=== PATIENT | male | born 1960 | race African-American/Black ===

== ENCOUNTER 2016-10-11 17:26 | Inpatient (IN) | payer MEDICAID, OTHER ==
[~2016-10-11] VITALS: Ht 167.6 cm; Wt 60.9 kg
[2016-10-11 18:03] LABS: GLUCOSE,POINT OF CARE 129 MG/DL (70-110)
[2016-10-11 18:14] LABS: BASOPHILS # (AUTO) 0.04 K/uL (0.00-0.20); EOSINOPHILS # (AUTO) 0.07 K/uL (0.00-0.70); EOSINOPHILS % (AUTO) 1.71 % (1.0-6.0); HEMATOCRIT 40.1 % (41-53); HEMOGLOBIN 13.6 g/dL (13.5-17.5); LYMPHOCYTES # (AUTO) 1.8 K/uL (1.0-4.8); LYMPHOCYTES % (AUTO) 46.3 % (22.0-44.0); MEAN CORPUSCULAR HGB CONC 33.9 G/dL (31.0-37.0); MEAN CORPUSCULAR VOLUME 100 fL (80-100); MONOCYTES # (AUTO) 0.4 K/uL (0.1-1.0); MONOCYTES % (AUTO) 9.3 % (2.0-9.0); NEUTROPHILS # (AUTO) 1.6 K/uL (1.8-7.7); NEUTROPHILS % (AUTO) 41.6 % (40.0-70.0); PLATELET COUNT (AUTO) 188 K/uL (150-450); RED BLOOD CELL COUNT(AUTO) 3.99 MIL/uL (4.50-5.90); RED CELL DISTRIBUTION WIDTH 14.3 % (11.5-14.5); WHITE BLOOD COUNT (AUTO) 3.9 K/uL (4.5-11.0)
[2016-10-11 18:20] LABS: ANION GAP 7 mmol/L (8-16); CARBON DIOXIDE 30 mmol/L (22-29); CHLORIDE 108 mmol/L (98-107); CREATININE 0.89 mg/dL (0.60-1.30); GLOMERULAR FILTR. RATE CALC > 60 mL/min (>60); POTASSIUM 4.5 mmol/L (3.5-5.1); SODIUM SERUM 145 mmol/L (136-145); UREA NITROGEN, BLOOD 21 mg/dL (7-18)
[2016-10-11 18:25] LABS: ALANINE AMINOTRANSFERASE 36 U/L (12-78); ALBUMIN 3.7 g/dL (3.4-5.0); ASPARTATE AMINOTRANSFERASE 22 U/L (15-37); BILIRUBIN,TOTAL 0.3 mg/dL (0.1-1.0); TOTAL PROTEIN, SERUM 6.8 g/dL (6.4-8.2)
[2016-10-11] MEDS ORDERED: QUEtiapine FUMARATE 100 MG TABLET PO PRN (20:15)
[2016-10-11] MEDS ORDERED: LORazepam 2 MG TABLET PO PRN (20:15)
[2016-10-11] MEDS ORDERED: ZOLPIDEM TARTRATE 10 MG TABLET PO PRN (20:15)
[2016-10-11 20:29] LABS: APPEARANCE,URINE CLEAR (CLEAR); GLUCOSE, URINE (UA) NEGATIVE (NEGATIVE); KETONES,URINE NEGATIVE (NEGATIVE); LEUKOCYTE ESTERASE ,URINE NEGATIVE (NEGATIVE); OCCULT BLOOD,URINE NEGATIVE (NEGATIVE); PH,URINE 5.5 (5.0-8.0); PROTEIN,URINE NEGATIVE (NEGATIVE)
[2016-10-11] MEDS ORDERED: QUEtiapine FUMARATE 100 MG TABLET PO ONE (20:30)
[2016-10-11 20:40] LABS: ADD UA MICROSCOPIC NO
[2016-10-11 22:35] VITALS: BP 106/65
[2016-10-12 00:51] VITALS: BP 119/77
[2016-10-12 08:17] VITALS: BP 104/61
[2016-10-12] MEDS: NICOTINE 21 MG/24 HOUR PATCH TD SCH (08:34)
[2016-10-12] MEDS ORDERED: MAGNESIUM HYDROXIDE SUSPENSION 30 ML UDCUP PO PRN (11:00)
[2016-10-12] MEDS ORDERED: ACETAMINOPHEN 325 MG TABLET PO PRN (11:00)
[2016-10-12] MEDS ORDERED: OLANZapine 5 MG RAPDIS TABLET PO PRN (11:00)
[2016-10-12] MEDS ORDERED: PROMETHAZINE HCL 25 MG TABLET PO PRN ×2 (11:00→15:45)
[2016-10-12] MEDS ORDERED: LOPERAMIDE HCL 2 MG CAPSULE PO PRN (11:00)
[2016-10-12] MEDS ORDERED: TUBERCULIN, PURIFIED PROTEIN DERIVATIVE 5 TU/0.1 ML SYG ID ONE (11:00)
[2016-10-12] MEDS ORDERED: HydrOXYzine PAMOATE 50 MG CAPSULE PO PRN (11:00)
[2016-10-12] MEDS ORDERED: GuaiFENesin/D-METHORPHAN [SUGAR-FREE] 200-20MG/10 ML SYRUP UDCUP PO PRN (11:00)
[2016-10-12] MEDS ORDERED: MAG HYDROX/AL HYDROX/SIMETH ES 30 ML SUSPENSION UDCUP PO PRN (11:00)
[2016-10-12] MEDS ORDERED: CYANOCOBALAMIN 1,000 MCG/ML VIAL IM ONE (15:45)
[2016-10-12] MEDS ORDERED: QUEtiapine FUMARATE 100 MG TABLET PO PRN (15:45)
[2016-10-12] MEDS ORDERED: DIAZEPAM 10 MG TABLET PO PRN (15:45)
[2016-10-12 16:36] VITALS: BP 107/60
[2016-10-12 16:52] VITALS: BP 107/60
[2016-10-12] MEDS: THIAMINE HCL 100 MG TABLET PO SCH (17:27)
[2016-10-12 17:36] VITALS: BP 110/61
[2016-10-12] MEDS: QUEtiapine FUMARATE 100 MG TABLET PO SCH (20:21)
[2016-10-12] MEDS ORDERED: OLANZapine 5 MG RAPDIS TABLET PO SCH (21:00)
[2016-10-12 22:36] VITALS: BP 111/68
[2016-10-13] VITALS (8 sets, daily range): BP systolic 98–126; BP diastolic 58–83
[2016-10-13] MEDS ORDERED: DIAZEPAM 10 MG TABLET PO PRN (07:00)
[2016-10-13] MEDS: FOLIC ACID 1 MG TABLET PO SCH (09:09)
[2016-10-13] MEDS: MULTIVITAMINS WITH MINERALS, THERAPEUTIC TABLET PO SCH (09:09)
[2016-10-13] MEDS: DIAZEPAM 10 MG TABLET PO SCH ×4 (09:10→21:00)
[2016-10-13] MEDS: THIAMINE HCL 100 MG TABLET PO SCH ×2 (09:10→17:32)
[2016-10-13] MEDS: NICOTINE 21 MG/24 HOUR PATCH TD SCH (09:10)
[2016-10-13] MEDS: QUEtiapine FUMARATE 100 MG TABLET PO SCH (21:05)
[2016-10-14 00:32] VITALS: BP 99/61
[2016-10-14 02:17] VITALS: BP 99/61
[2016-10-14 08:05] VITALS: BP 122/77
[2016-10-14 08:06] VITALS: BP 122/77
[2016-10-14] MEDS: NICOTINE 21 MG/24 HOUR PATCH TD SCH (08:46)
[2016-10-14] MEDS: FOLIC ACID 1 MG TABLET PO SCH (08:46)
[2016-10-14] MEDS: MULTIVITAMINS WITH MINERALS, THERAPEUTIC TABLET PO SCH (08:46)
[2016-10-14] MEDS: THIAMINE HCL 100 MG TABLET PO SCH ×2 (08:46→16:21)
[2016-10-14] MEDS: DIAZEPAM 10 MG TABLET PO SCH ×4 (08:46→20:23)
[2016-10-14] MEDS ORDERED: QUET100T33 PO (11:46)
[2016-10-14] MEDS ORDERED: NALT50 PO (11:46)
[2016-10-14] MEDS ORDERED: HYDROCORTISONE 2.5% 30 GM OINTMENT TP PRN (15:30)
[2016-10-14 16:00] VITALS: BP 119/75
[2016-10-14 16:35] VITALS: BP 119/75
[2016-10-14] MEDS: QUEtiapine FUMARATE 200 MG TABLET PO SCH (20:23)
[2016-10-15] VITALS: BP 108/69
[2016-10-15 05:00] VITALS: BP 124/71
[2016-10-15] MEDS ORDERED: DIAZEPAM 5 MG TABLET PO PRN (07:00)
[2016-10-15 08:00] VITALS: BP 102/71
[2016-10-15 08:06] VITALS: BP 102/61
[2016-10-15 08:38] LABS: CHOL/HDL RATIO 3.3 (4.2-7.3); MAGNESIUM 1.6 mg/dL (1.80-2.40)
[2016-10-15] MEDS: MULTIVITAMINS WITH MINERALS, THERAPEUTIC TABLET PO SCH (08:51)
[2016-10-15] MEDS: DIAZEPAM 5 MG TABLET PO SCH ×4 (08:51→20:37)
[2016-10-15] MEDS: NICOTINE 21 MG/24 HOUR PATCH TD SCH (08:52)
[2016-10-15] MEDS: NALTREXONE HCL 50 MG TABLET PO SCH (08:52)
[2016-10-15] MEDS: THIAMINE HCL 100 MG TABLET PO SCH ×2 (08:52→16:40)
[2016-10-15] MEDS: FOLIC ACID 1 MG TABLET PO SCH (08:52)
[2016-10-15 16:00] VITALS: BP 106/60
[2016-10-15 16:23] VITALS: BP 106/60
[2016-10-15] MEDS: QUEtiapine FUMARATE 200 MG TABLET PO SCH (20:37)
[2016-10-16 01:37] VITALS: BP 110/62
[2016-10-16 01:38] VITALS: BP 110/62
[2016-10-16] MEDS ORDERED: DIAZEPAM 5 MG TABLET PO PRN (07:00)
[2016-10-16] MEDS: MULTIVITAMINS WITH MINERALS, THERAPEUTIC TABLET PO SCH (08:23)
[2016-10-16] MEDS: THIAMINE HCL 100 MG TABLET PO SCH ×2 (08:23→16:19)
[2016-10-16] MEDS: NALTREXONE HCL 50 MG TABLET PO SCH (08:23)
[2016-10-16] MEDS: NICOTINE 21 MG/24 HOUR PATCH TD SCH (08:23)
[2016-10-16] MEDS: FOLIC ACID 1 MG TABLET PO SCH (08:23)
[2016-10-16 09:05] VITALS: BP 110/70
[2016-10-16 09:14] LABS: HEPATITIS Bs ANTIGEN SCREEN P Negative (Negative); HEPATITIS C AB SCREEN <0.1 s/co ratio (0.0-0.9)
[2016-10-16 09:53] VITALS: BP 110/70
[2016-10-16 14:37] VITALS: BP 126/70
[2016-10-16 16:00] VITALS: BP 110/61
[2016-10-16] MEDS: QUEtiapine FUMARATE 200 MG TABLET PO SCH (20:32)
[2016-10-17 06:51] VITALS: BP 102/66
[2016-10-17 06:52] VITALS: BP 102/64
[2016-10-17 08:33] VITALS: BP 101/62
[2016-10-17] MEDS: NALTREXONE HCL 50 MG TABLET PO SCH (09:08)
[2016-10-17] MEDS: NICOTINE 21 MG/24 HOUR PATCH TD SCH (09:08)
[2016-10-17] MEDS: FOLIC ACID 1 MG TABLET PO SCH (09:08)
[2016-10-17] MEDS: MULTIVITAMINS WITH MINERALS, THERAPEUTIC TABLET PO SCH (09:08)
[2016-10-17] MEDS: THIAMINE HCL 100 MG TABLET PO SCH ×2 (09:08→16:36)
[2016-10-17 16:06] VITALS: BP 106/61
[2016-10-17] MEDS: QUEtiapine FUMARATE 200 MG TABLET PO SCH (20:30)
[2016-10-18 06:31] VITALS: BP 112/71
[2016-10-18 08:57] VITALS: BP 121/73
[2016-10-18] MEDS: THIAMINE HCL 100 MG TABLET PO SCH ×2 (09:08→16:17)
[2016-10-18] MEDS: NALTREXONE HCL 50 MG TABLET PO SCH (09:08)
[2016-10-18] MEDS: FOLIC ACID 1 MG TABLET PO SCH (09:08)
[2016-10-18] MEDS: MULTIVITAMINS WITH MINERALS, THERAPEUTIC TABLET PO SCH (09:08)
[2016-10-18] MEDS: NICOTINE 21 MG/24 HOUR PATCH TD SCH (09:09)
[2016-10-18 16:00] VITALS: BP 119/73
[2016-10-18] MEDS ORDERED: QUEtiapine FUMARATE 300 MG TABLET PO SCH (21:00)
[2016-10-19 00:34] VITALS: BP 110/60
[2016-10-19] MEDS: NALTREXONE HCL 50 MG TABLET PO SCH (08:14)
[2016-10-19] MEDS: FOLIC ACID 1 MG TABLET PO SCH (08:14)
[2016-10-19] MEDS: THIAMINE HCL 100 MG TABLET PO SCH ×2 (08:14→16:02)
[2016-10-19] MEDS: NICOTINE 21 MG/24 HOUR PATCH TD SCH (08:14)
[2016-10-19] MEDS: MULTIVITAMINS WITH MINERALS, THERAPEUTIC TABLET PO SCH (08:14)
[2016-10-19 08:42] VITALS: BP 112/60
[2016-10-19] MEDS ORDERED: QUET300T18 PO (12:24)
[2016-10-19] MEDS ORDERED: QUET400T PO (15:02)
[2016-10-19] MEDS ORDERED: NALT50TA10 PO (15:04)
[2016-10-19 16:00] VITALS: BP 125/79
[2016-10-19] MEDS ORDERED: ROPI1TAB11 PO (17:27)
[2016-10-19] MEDS ORDERED: ROPINIRole HCL 1 MG TABLET PO SCH (21:00)
[2016-10-19] MEDS ORDERED: QUEtiapine FUMARATE 200 MG TABLET PO SCH (21:00)
== END 2016-10-19 19:15 | disposition home or self-care (01) | DRG 750 ==
LOC: EMS 17:38 → B2S 20:15
PROVIDERS: ADMIT Psychiatry & Neurology Psychiatry; ATTEND Psychiatry & Neurology Psychiatry
PROC: GZ51ZZZ Individual Psychotherapy, Behavioral (ICD-10-PCS; principal; 2016-10-11)
DX: F25.9 Schizoaffective disorder, unspecified (principal); R45.851 Suicidal ideations; I11.0 Hypertensive heart disease with heart failure; I50.9 Heart failure, unspecified; K21.9 Gastro-esophageal reflux disease without esophagitis; R45.850 Homicidal ideations; F32.9 Major depressive disorder, single episode, unspecified; D64.9 Anemia, unspecified; F15.90 Other stimulant use, unspecified, uncomplicated; F17.210 Nicotine dependence, cigarettes, uncomplicated; Z91.19 Patient's noncompliance with other medical treatment and regimen; Z71.6 Tobacco abuse counseling; Z90.49 Acquired absence of other specified parts of digestive tract; Z98.890 Other specified postprocedural states; Z87.81 Personal history of (healed) traumatic fracture; Z86.010 Personal history of colon polyps
CPT/HCPCS: 80074; 82962; 83036; 83735; 99285; G0480; J3420

== ENCOUNTER 2016-12-17 19:21 | Emergency (ER) | payer MEDICAID, OTHER ==
[~2016-12-17] VITALS: Ht 167.6 cm; Wt 59.0 kg
[~2016-12-17 19:21] MED LIST: NALT50 PO; NALT50TA10 PO; QUET100T33 PO; QUET300T18 PO; QUET400T PO; ROPI1TAB11 PO
[2016-12-17 19:47] LABS: GLUCOSE,POINT OF CARE 87 MG/DL (70-110)
[2016-12-17 20:18] LABS: BASOPHILS % (AUTO) 1.3 % (0.0-2.0); EOSINOPHILS % (AUTO) 2.3 % (1.0-6.0); HEMATOCRIT 41.5 % (41-53); HEMOGLOBIN 13.8 g/dL (13.5-17.5); LYMPHOCYTES # (AUTO) 1.8 K/uL (1.0-4.8); LYMPHOCYTES % (AUTO) 39.7 % (22.0-44.0); MEAN CORPUSCULAR HEMOGLOBIN 33.7 pg (26.0-34.0); MEAN CORPUSCULAR HGB CONC 33.2 G/dL (31.0-37.0); MEAN CORPUSCULAR VOLUME 102 fL (80-100); MONOCYTES # (AUTO) 0.3 K/uL (0.1-1.0); MONOCYTES % (AUTO) 7.5 % (2.0-9.0); NEUTROPHILS # (AUTO) 2.2 K/uL (1.8-7.7); NEUTROPHILS % (AUTO) 49.2 % (40.0-70.0); PLATELET COUNT (AUTO) 195 K/uL (150-450); RED BLOOD CELL COUNT(AUTO) 4.08 MIL/uL (4.50-5.90); RED CELL DISTRIBUTION WIDTH 14.1 % (11.5-14.5); WHITE BLOOD COUNT (AUTO) 4.5 K/uL (4.5-11.0)
[2016-12-17 20:29] LABS: ANION GAP 11 mmol/L (8-16); CALCIUM, TOTAL 9.2 mg/dL (8.8-10.5); CARBON DIOXIDE 28 mmol/L (22-29); CHLORIDE 103 mmol/L (98-107); CREATININE 0.86 mg/dL (0.60-1.30); GLOMERULAR FILTR. RATE CALC > 60 mL/min (>60); SODIUM SERUM 142 mmol/L (136-145); UREA NITROGEN, BLOOD 17 mg/dL (7-18)
[2016-12-17 20:35] LABS: ALANINE AMINOTRANSFERASE 43 U/L (12-78); ALBUMIN 3.9 g/dL (3.4-5.0); ASPARTATE AMINOTRANSFERASE 32 U/L (15-37); BILIRUBIN,TOTAL 0.4 mg/dL (0.1-1.0); TOTAL PROTEIN, SERUM 7.1 g/dL (6.4-8.2)
[2016-12-17] MEDS ORDERED: QUEtiapine FUMARATE 100 MG TABLET PO ONE (21:00)
[2016-12-17] MEDS ORDERED: QUET100T PO (21:00)
[2016-12-17 21:08] VITALS: BP 128/81
[2016-12-17 22:26] LABS: RBC MORPHOLOGY COMMENT ABNORMAL RBC MORPH
== END 2016-12-17 21:09 | disposition home or self-care (01) ==
LOC: EMS 19:23
DX: F32.9 Major depressive disorder, single episode, unspecified (principal); F20.9 Schizophrenia, unspecified; R45.851 Suicidal ideations; E11.9 Type 2 diabetes mellitus without complications; F17.210 Nicotine dependence, cigarettes, uncomplicated
CPT/HCPCS: 36415; 80053; 82962; 85025; 99284; 99406; G0480

== ENCOUNTER 2017-05-05 12:14 | Emergency (ER) | payer OTHER ==
[~2017-05-05] VITALS: Ht 167.6 cm; Wt 59.5 kg
[~2017-05-05 12:14] MED LIST changes: -NALT50 PO; +NALT50TA6 PO; +QUET100T PO; -QUET100T33 PO; -QUET300T18 PO; -QUET400T PO
[2017-05-05 12:19] VITALS: BP 150/97
== END 2017-05-05 13:50 | disposition left against medical advice (07) ==
LOC: EMS 12:15
DX: Z53.21 Procedure and treatment not carried out due to patient leaving prior to being seen by health care provider (principal)

== ENCOUNTER 2017-11-27 07:13 | Emergency (ER) | payer OTHER ==
[~2017-11-27] VITALS: Ht 175.3 cm; Wt 68.2 kg
[~2017-11-27 07:13] MED LIST changes: -NALT50TA6 PO
[2017-11-27 07:19] VITALS: BP 120/87
[2017-11-27 07:33] LABS: GLUCOSE,POINT OF CARE 93 MG/DL (70-110)
[2017-11-27 07:49] LABS: APPEARANCE,URINE CLEAR (CLEAR)
[2017-11-27 07:50] LABS: BILIRUBIN,URINE NEGATIVE (NEGATIVE); GLUCOSE, URINE (UA) NEGATIVE (NEGATIVE); KETONES,URINE TRACE mg/dL (NEGATIVE); LEUKOCYTE ESTERASE ,URINE NEGATIVE (NEGATIVE); NITRATE,URINE NEGATIVE (NEGATIVE); OCCULT BLOOD,URINE NEGATIVE (NEGATIVE); PH,URINE 6.5 (5.0-8.0); PROTEIN,URINE POS 1+ (NEGATIVE)
[2017-11-27] MEDS ORDERED: AZITHROMYCIN 250 MG TABLET PO ONE (08:45)
[2017-11-27] MEDS ORDERED: LIDOCAINE HCL/PF 1% 2 ML VIAL IM ONE (08:45)
[2017-11-27] MEDS ORDERED: CefTRIAXone SODIUM 1 GM/VIAL IM ONE (08:45)
== END 2017-11-27 08:52 | disposition home or self-care (01) ==
LOC: EMS 07:15
DX: R36.9 Urethral discharge, unspecified (principal); E11.9 Type 2 diabetes mellitus without complications; F15.90 Other stimulant use, unspecified, uncomplicated; F17.210 Nicotine dependence, cigarettes, uncomplicated
CPT/HCPCS: 81003; 82962; 96372; 99283; J0696; J3490

== ENCOUNTER 2018-07-06 12:47 | Emergency (ER) | payer OTHER ==
[~2018-07-06] VITALS: Ht 167.6 cm; Wt 59.5 kg
[2018-07-06 13:14] LABS: GLUCOSE,POINT OF CARE 84 MG/DL (70-110)
[2018-07-06 13:23] VITALS: BP 116/79
[2018-07-06] MEDS ORDERED: PERTUSS(ACELL),DIPH,TET VAC/PF 0.5 ML VIAL IM ONE (13:45)
== END 2018-07-06 14:36 | disposition home or self-care (01) ==
LOC: EMS 12:48
DX: S91.332A Puncture wound without foreign body, left foot, initial encounter (principal); E11.9 Type 2 diabetes mellitus without complications; F32.9 Major depressive disorder, single episode, unspecified; F20.9 Schizophrenia, unspecified; F17.210 Nicotine dependence, cigarettes, uncomplicated; F15.90 Other stimulant use, unspecified, uncomplicated; Z79.899 Other long term (current) drug therapy; W45.0XXA Nail entering through skin, initial encounter; Y93.01 Activity, walking, marching and hiking; Y92.89 Other specified places as the place of occurrence of the external cause; Y99.8 Other external cause status
CPT/HCPCS: 90471; 90715

== ENCOUNTER 2018-10-08 20:55 | Emergency (ER) | payer OTHER ==
[~2018-10-08] VITALS: Ht 167.6 cm; Wt 59.1 kg
[2018-10-08 21:49] LABS: GLUCOSE,POINT OF CARE 75 MG/DL (70-110)
[2018-10-08 23:19] VITALS: BP 141/88
== END 2018-10-08 23:25 | disposition home or self-care (01) ==
LOC: EMS 20:56
DX: H10.9 Unspecified conjunctivitis (principal); F32.9 Major depressive disorder, single episode, unspecified; F10.20 Alcohol dependence, uncomplicated; F20.9 Schizophrenia, unspecified; F17.210 Nicotine dependence, cigarettes, uncomplicated; F15.90 Other stimulant use, unspecified, uncomplicated; Z79.899 Other long term (current) drug therapy

== ENCOUNTER 2019-05-14 13:24 | Emergency (ER) | payer OTHER ==
[~2019-05-14] VITALS: Ht 167.6 cm; Wt 61.4 kg
[2019-05-14 16:23] LABS: BASOPHILS % (AUTO) 0.5 % (0.0-2.0); EOSINOPHILS % (AUTO) 1.4 % (1.0-6.0); HEMATOCRIT 39.6 % (41-53); HEMOGLOBIN 13.3 g/dL (13.5-17.5); LYMPHOCYTES % (AUTO) 16.9 % (22.0-44.0); MEAN CORPUSCULAR HEMOGLOBIN 34.2 pg (26.0-34.0); MEAN CORPUSCULAR HGB CONC 33.6 G/dL (31.0-37.0); MEAN CORPUSCULAR VOLUME 102 fL (80-100); MONOCYTES # (AUTO) 0.9 K/uL (0.1-1.0); MONOCYTES % (AUTO) 14.8 % (2.0-9.0); NEUTROPHILS % (AUTO) 66.4 % (40.0-70.0); PLATELET COUNT (AUTO) 257 K/uL (150-450); RED BLOOD CELL COUNT(AUTO) 3.89 MIL/uL (4.50-5.90); RED CELL DISTRIBUTION WIDTH 13.7 % (11.5-14.5)
[2019-05-14 16:35] LABS: ANION GAP 7 mmol/L (8-16); CALCIUM, TOTAL 9.2 mg/dL (8.8-10.5); CARBON DIOXIDE 30 mmol/L (22-29); CHLORIDE 98 mmol/L (98-107); CREATININE 0.99 mg/dL (0.60-1.30); GLOMERULAR FILTR. RATE CALC > 60 mL/min (>60); GLUCOSE,RANDOM 140 mg/dL (70-110); POTASSIUM 3.7 mmol/L (3.5-5.1); SODIUM SERUM 135 mmol/L (136-145); UREA NITROGEN, BLOOD 20 mg/dL (7-18)
[2019-05-14 16:41] LABS: ALANINE AMINOTRANSFERASE 21 U/L (12-78); ALBUMIN 3.7 g/dL (3.4-5.0); ALKALINE PHOSPHATASE 90 U/L (46-116); ASPARTATE AMINOTRANSFERASE 20 U/L (15-37); BILIRUBIN,TOTAL 0.5 mg/dL (0.1-1.0); TOTAL PROTEIN, SERUM 7.5 g/dL (6.4-8.2)
[2019-05-14 16:42] LABS: LACTIC ACID 0.8 mmol/L (0.4-2.0)
[2019-05-14] MEDS ORDERED: LIDOCAINE 1% 10 ML VIAL INJ ONE (17:30)
[2019-05-14] MEDS ORDERED: LIDOCAINE/PF 1% 2 ML VIAL IM ONE (17:30)
[2019-05-14] MEDS ORDERED: POVIDONE-IODINE 10% 15 ML SOLUTION UD TP ONE (17:30)
[2019-05-14] MEDS ORDERED: CefTRIAXone SODIUM 1 GM/VIAL IM ONE (17:30)
[2019-05-14 18:49] VITALS: BP 115/70
== END 2019-05-14 19:04 | disposition home or self-care (01) ==
LOC: EMS 13:25
DX: L03.011 Cellulitis of right finger (principal); E11.9 Type 2 diabetes mellitus without complications; F10.20 Alcohol dependence, uncomplicated; F32.9 Major depressive disorder, single episode, unspecified; F20.9 Schizophrenia, unspecified; F17.210 Nicotine dependence, cigarettes, uncomplicated; F15.90 Other stimulant use, unspecified, uncomplicated; Z79.899 Other long term (current) drug therapy; Z98.890 Other specified postprocedural states
CPT/HCPCS: 10060; 36415; 73130; 80053; 83605; 85025; 96372; 99284; J0696; J3490 ×2

== ENCOUNTER 2019-08-06 12:39 | Emergency (ER) | payer OTHER ==
[~2019-08-06] VITALS: Ht 167.6 cm; Wt 61.4 kg
[~2019-08-06 12:39] MED LIST changes: -ROPI1TAB11 PO; +ROPI1TAB13 PO
[2019-08-06] MEDS ORDERED: ACETAMINOPHEN 500 MG TABLET PO ONE (13:45)
[2019-08-06] MEDS ORDERED: PERTUSS(ACELL),DIPH,TET VAC/PF 0.5 ML VIAL IM ONE (13:45)
[2019-08-06 14:17] LABS: GLUCOSE,POINT OF CARE 97 MG/DL (70-110)
[2019-08-06] MEDS ORDERED: CEPHALEXIN MONOHYDRATE 500 MG CAPSULE PO ONE (14:45)
[2019-08-06 14:56] VITALS: BP 113/61
== END 2019-08-06 15:09 | disposition home or self-care (01) ==
LOC: EMS 12:42
DX: S91.321A Laceration with foreign body, right foot, initial encounter (principal); E11.9 Type 2 diabetes mellitus without complications; F10.20 Alcohol dependence, uncomplicated; F32.9 Major depressive disorder, single episode, unspecified; F20.9 Schizophrenia, unspecified; F17.210 Nicotine dependence, cigarettes, uncomplicated; F15.90 Other stimulant use, unspecified, uncomplicated; Z79.899 Other long term (current) drug therapy; Z98.890 Other specified postprocedural states; W22.8XXA Striking against or struck by other objects, initial encounter; Y93.89 Activity, other specified; Y92.89 Other specified places as the place of occurrence of the external cause; Y99.8 Other external cause status
CPT/HCPCS: 82948; 90471; 90715; 99406

== ENCOUNTER 2019-09-17 14:46 | Emergency (ER) | payer OTHER ==
[~2019-09-17] VITALS: Ht 167.6 cm; Wt 60.0 kg
[2019-09-17 17:21] VITALS: BP 122/64
== END 2019-09-17 17:22 | disposition home or self-care (01) ==
LOC: EMS 14:48
DX: S90.851A Superficial foreign body, right foot, initial encounter (principal); E11.9 Type 2 diabetes mellitus without complications; F20.9 Schizophrenia, unspecified; F32.9 Major depressive disorder, single episode, unspecified; F17.210 Nicotine dependence, cigarettes, uncomplicated; W22.8XXA Striking against or struck by other objects, initial encounter; Y93.89 Activity, other specified; Y92.89 Other specified places as the place of occurrence of the external cause; Y99.8 Other external cause status
CPT/HCPCS: 99406

== ENCOUNTER 2020-06-02 19:01 | Emergency (ER) | payer OTHER ==
[~2020-06-02] VITALS: Ht 167.6 cm; Wt 60.0 kg
[2020-06-02 19:51] LABS: APPEARANCE,URINE CLEAR (CLEAR); BILIRUBIN,URINE NEGATIVE (NEGATIVE); GLUCOSE, URINE (UA) NEGATIVE (NEGATIVE); KETONES,URINE NEGATIVE (NEGATIVE); LEUKOCYTE ESTERASE ,URINE NEGATIVE (NEGATIVE); NITRATE,URINE NEGATIVE (NEGATIVE); OCCULT BLOOD,URINE NEGATIVE (NEGATIVE); PH,URINE 6.5 (5.0-8.0); PROTEIN,URINE NEGATIVE (NEGATIVE)
[2020-06-02] MEDS ORDERED: TAMSULOSIN HCL 0.4 MG CAPSULE PO ONE (21:00)
[2020-06-02 21:50] VITALS: BP 118/72
== END 2020-06-02 22:52 | disposition home or self-care (01) ==
LOC: EMS 19:01
DX: R39.12 Poor urinary stream (principal); F32.9 Major depressive disorder, single episode, unspecified; F20.9 Schizophrenia, unspecified; E11.9 Type 2 diabetes mellitus without complications; F17.210 Nicotine dependence, cigarettes, uncomplicated; F15.90 Other stimulant use, unspecified, uncomplicated

== ENCOUNTER 2021-05-14 20:59 | Inpatient (IN) | payer OTHER ==
[~2021-05-14] VITALS: Ht 167.6 cm; Wt 64.5 kg
[2021-05-14] MEDS ORDERED: APIX5TAB PO (21:10)
[2021-05-14] MEDS ORDERED: QUET200T PO (21:10)
[2021-05-14] MEDS ORDERED: ACETAMINOPHEN 500 MG TABLET PO ONE (22:45)
[2021-05-14] MEDS ORDERED: SODIUM CHLORIDE 0.9% 1,800 ML IV ONE (22:45)
[2021-05-14] MEDS ORDERED: CefTRIAXone 1 GM/DEXTROSE 50 ML IV ONE (22:45)
[2021-05-14] MEDS ORDERED: 0.9% SODIUM CHLORIDE 10 ML SYRINGE IVP PRN (22:45)
[2021-05-14 23:15] LABS: COVID AG,FIA SOURCE NASOPHARYNGEAL
[2021-05-14 23:19] LABS: BASOPHILS % (AUTO) 0.8 % (0.0-2.0); EOSINOPHILS % (AUTO) 0.3 % (1.0-6.0); HEMATOCRIT 30.1 % (41-53); HEMOGLOBIN 9.9 g/dL (13.5-17.5); LYMPHOCYTES # (AUTO) 1.6 K/uL (1.0-4.8); LYMPHOCYTES % (AUTO) 8.2 % (22.0-44.0); MEAN CORPUSCULAR HEMOGLOBIN 32.9 pg (26.0-34.0); MEAN CORPUSCULAR HGB CONC 33.1 G/dL (31.0-37.0); MEAN CORPUSCULAR VOLUME 99 fL (80-100); MONOCYTES # (AUTO) 1.2 K/uL (0.1-1.0); MONOCYTES % (AUTO) 6.1 % (2.0-9.0); NEUTROPHILS # (AUTO) 16.7 K/uL (1.8-7.7); NEUTROPHILS % (AUTO) 84.6 % (40.0-70.0); PLATELET COUNT (AUTO) 657 K/uL (150-450); RED BLOOD CELL COUNT(AUTO) 3.03 MIL/uL (4.50-5.90); RED CELL DISTRIBUTION WIDTH 14.9 % (11.5-14.5)
[2021-05-14 23:33] LABS: INR 1.3 (0.9-1.1); PROTHROMBIN TIME 13.4 SEC (9.4-11.6)
[2021-05-14 23:34] LABS: SODIUM SERUM 137 mmol/L (136-145)
[2021-05-14 23:35] LABS: ANION GAP 10 mmol/L (8-16); CALCIUM, TOTAL 9.3 mg/dL (8.8-10.5); CARBON DIOXIDE 29 mmol/L (22-29); CHLORIDE 98 mmol/L (98-107); CREATININE 0.83 mg/dL (0.60-1.30); GLOMERULAR FILTR. RATE CALC > 60 mL/min (>60); GLUCOSE,RANDOM 125 mg/dL (70-110); POTASSIUM 4.3 mmol/L (3.5-5.1); UREA NITROGEN, BLOOD 13 mg/dL (7-18)
[2021-05-14 23:42] LABS: INFLUENZA TYPE A NEGATIVE FOR TYPE A (NEGATIVE); INFLUENZA TYPE B NEGATIVE FOR TYPE B (NEGATIVE); LACTIC ACID 1.7 mmol/L (0.4-2.0)
[2021-05-14 23:44] LABS: ALANINE AMINOTRANSFERASE 62 U/L (12-78); ALBUMIN 2.1 g/dL (3.4-5.0); ALKALINE PHOSPHATASE 108 U/L (46-116); ASPARTATE AMINOTRANSFERASE 36 U/L (15-37); BILIRUBIN,TOTAL 0.3 mg/dL (0.1-1.0); CREATINE KINASE, TOTAL ONLY 96 U/L (39-308); TOTAL PROTEIN, SERUM 8.2 g/dL (6.4-8.2)
[2021-05-14] MEDS ORDERED: AZITHROMYCIN 500 MG/NS 250 ML IV ONE (23:45)
[2021-05-14 23:46] LABS: B-TYPE NATRIURETIC PEPTIDE 63 pg/mL (0-100)
[2021-05-14 23:57] LABS: APPEARANCE,URINE CLEAR (CLEAR); BILIRUBIN,URINE NEGATIVE (NEGATIVE); GLUCOSE, URINE (UA) NEGATIVE (NEGATIVE); KETONES,URINE NEGATIVE (NEGATIVE); LEUKOCYTE ESTERASE ,URINE NEGATIVE (NEGATIVE); NITRATE,URINE NEGATIVE (NEGATIVE); OCCULT BLOOD,URINE NEGATIVE (NEGATIVE); PROTEIN,URINE NEGATIVE (NEGATIVE)
[2021-05-15 00:01] LABS: AMPHET/METH SCREEN,URINE NEGATIVE (NEGATIVE); BARBITURATE SCREEN, URINE NEGATIVE (NEGATIVE); BENZODIAZEPINES SCREEN,URINE NEGATIVE (NEGATIVE); CANNABINOID SCREEN,URINE NEGATIVE (NEGATIVE); COCAINE SCREEN,URINE NEGATIVE (NEGATIVE); METHADONE SCREEN, URINE NEGATIVE (NEGATIVE); OPIATE SCREEN,URINE NEGATIVE (NEGATIVE)
[2021-05-15 00:02] LABS: PHENCYCLIDINE SCREEN,URINE NEGATIVE (NEGATIVE)
[2021-05-15] MEDS ORDERED: ACETAMINOPHEN 325 MG TABLET PO PRN (00:30)
[2021-05-15] MEDS ORDERED: ONDANSETRON HCL 4 MG/2 ML VIAL IVP PRN ×2 (00:30→01:15)
[2021-05-15] MEDS ORDERED: ALBUTEROL SULFATE 2.5 MG/0.5 ML NEB SOLUTION NEB PRN (01:15)
[2021-05-15] MEDS ORDERED: IPRATROPIUM BROMIDE 0.5 MG/2.5 ML NEB SOLUTION NEB PRN (01:15)
[2021-05-15] MEDS: SODIUM CHLORIDE 0.9% 1,000 ML IV SCH ×2 (01:31→14:56)
[2021-05-15] MEDS: PIPERACILLIN/TAZO 3.375 GM/D5W 50 ML IV SCH ×3 (08:00→20:37)
[2021-05-15] MEDS ORDERED: HEPARIN SODIUM,PORCINE 5,000 UNITS/ML VIAL SQ SCH (08:00)
[2021-05-15] MEDS ORDERED: VANCOMYCIN HCL 1 GM/D5% WATER 200 ML IV ONE (08:30)
[2021-05-15 09:00] VITALS: BP 103/60
[2021-05-15] MEDS ORDERED: FentaNYL CITRATE PF 100 MCG/2 ML VIAL ONE (09:18)
[2021-05-15] MEDS ORDERED: FLUMAZENIL 0.1 MG/ML 5 ML VIAL IVP ONE (09:18)
[2021-05-15] MEDS ORDERED: NALOXONE HCL 0.4 MG/ML VIAL ONE (09:18)
[2021-05-15] MEDS ORDERED: MIDAZOLAM HCL 2 MG/2 ML VIAL ONE (09:18)
[2021-05-15] MEDS ORDERED: SODIUM CHLORIDE 0.9% 250 ML IV ONE (10:10)
[2021-05-15] MEDS ORDERED: FentaNYL CITRATE PF 100 MCG/2 ML VIAL IVP ONE ×2 (11:20→11:25)
[2021-05-15] MEDS ORDERED: MIDAZOLAM HCL 2 MG/2 ML VIAL IVP ONE (11:20)
[2021-05-15] MEDS: MORPHINE SULFATE 2 MG/ML SYRINGE IVP PRN ×2 (12:47→20:34)
[2021-05-15] MEDS: ACETAMINOPHEN 325 MG TABLET PO PRN (14:02)
[2021-05-15 15:45] VITALS: BP 103/64
[2021-05-15 15:54] LABS: SPECIMENTYPE,BODY FLUID PLEURAL
[2021-05-15 15:55] VITALS: BP 101/65
[2021-05-15] MEDS: VANCOMYCIN HCL 750 MG in DEXTROSE 5%-WATER 250 ML IV SCH (16:55)
[2021-05-15] MEDS ORDERED: DEXTROSE 50%-WATER 25 GM/50 ML SYRINGE IVP PRN (17:00)
[2021-05-15] MEDS: INSULIN LISPRO 100 UNITS/ML SQ PRN (17:33)
[2021-05-15 18:05] LABS: GLUCOMETER DEV NAME(LOC) 5S.2B; GLUCOSE,POINT OF CARE 160 MG/DL (70-110)
[2021-05-15 18:33] LABS: APPEARANCE,SPUN,BODY FLUID CLOUDY (CLEAR); APPEARANCE,UNSPUN,BODY FLUID TURBID (CLEAR); BASOPHILS,BODY FLUID 0 %; COLOR,BODY FLUID YELLOW (LT YELLOW); EOSINOPHILS,BF (ANAL) 0 %; LYMPHOCYTES,BODY FLUID 28 %; MONOCYTES,BODY FLUID 0 %; NEUTROPHILS,BODY FLUID 72 %; TOTAL VOLUME,BODY FLUID 50 mL; WBC, BODY FLUID 28450 /cu. mm.
[2021-05-15 20:32] VITALS: BP 95/59
[2021-05-15] MEDS: QUEtiapine FUMARATE 200 MG TABLET PO SCH (20:37)
[2021-05-15] MEDS: APIXABAN 5 MG TABLET PO SCH (20:37)
[2021-05-15 22:47] LABS: GLUCOMETER DEV NAME(LOC) 5S.1; GLUCOSE,POINT OF CARE 108 MG/DL (70-110)
[2021-05-15] MEDS ORDERED: CefTRIAXone 1 GM/DEXTROSE 50 ML IV SCH (23:00)
[2021-05-16] VITALS (8 sets, daily range): BP systolic 93–110; BP diastolic 55–67
[2021-05-16] MEDS ORDERED: AZITHROMYCIN 500 MG/NS 250 ML IV SCH
[2021-05-16] MEDS: VANCOMYCIN HCL 750 MG in DEXTROSE 5%-WATER 250 ML IV SCH ×4 (00:35→23:56)
[2021-05-16] MEDS: PIPERACILLIN/TAZO 3.375 GM/D5W 50 ML IV SCH ×4 (03:17→21:32)
[2021-05-16] MEDS: SODIUM CHLORIDE 0.9% 1,000 ML IV SCH (03:55)
[2021-05-16] MEDS: INSULIN LISPRO 100 UNITS/ML SQ PRN ×3 (06:18→21:33)
[2021-05-16 06:22] LABS: BASOPHILS % (AUTO) 0.3 % (0.0-2.0); EOSINOPHILS % (AUTO) 1.1 % (1.0-6.0); HEMATOCRIT 28.4 % (41-53); HEMOGLOBIN 9.4 g/dL (13.5-17.5); LYMPHOCYTES % (AUTO) 9.2 % (22.0-44.0); MEAN CORPUSCULAR HGB CONC 33.2 G/dL (31.0-37.0); MEAN CORPUSCULAR VOLUME 99 fL (80-100); MONOCYTES # (AUTO) 0.6 K/uL (0.1-1.0); MONOCYTES % (AUTO) 5.6 % (2.0-9.0); NEUTROPHILS # (AUTO) 9.5 K/uL (1.8-7.7); NEUTROPHILS % (AUTO) 83.8 % (40.0-70.0); PLATELET COUNT (AUTO) 634 K/uL (150-450); RED BLOOD CELL COUNT(AUTO) 2.86 MIL/uL (4.50-5.90); RED CELL DISTRIBUTION WIDTH 15.1 % (11.5-14.5)
[2021-05-16 07:08] LABS: ANION GAP 12 mmol/L (8-16); CALCIUM, TOTAL 8.5 mg/dL (8.8-10.5); CARBON DIOXIDE 27 mmol/L (22-29); CHLORIDE 101 mmol/L (98-107); CREATININE 0.71 mg/dL (0.60-1.30); GLOMERULAR FILTR. RATE CALC > 60 mL/min (>60); GLUCOSE,RANDOM 152 mg/dL (70-110); LACTATE DEHYDROGENASE 151 U/L (85-227); POTASSIUM 3.8 mmol/L (3.5-5.1); SODIUM SERUM 140 mmol/L (136-145); TOTAL PROTEIN, SERUM 6.7 g/dL (6.4-8.2); UREA NITROGEN, BLOOD 8 mg/dL (7-18)
[2021-05-16] MEDS: MULTIVITAMINS WITH MINERALS, THERAPEUTIC TABLET PO SCH (08:24)
[2021-05-16] MEDS: QUEtiapine FUMARATE 100 MG TABLET PO SCH (08:24)
[2021-05-16] MEDS: THIAMINE 100 MG TABLET PO SCH (08:25)
[2021-05-16] MEDS: APIXABAN 5 MG TABLET PO SCH ×2 (08:25→21:32)
[2021-05-16] MEDS: FOLIC ACID 1 MG TABLET PO SCH (08:25)
[2021-05-16] MEDS: ACETAMINOPHEN 325 MG TABLET PO PRN (08:42)
[2021-05-16 11:23] LABS: GLUCOMETER DEV NAME(LOC) 5S.1; GLUCOSE,POINT OF CARE 170 MG/DL (70-110)
[2021-05-16 16:12] LABS: FREE T4 (FREE THYROXINE) 1.4 ng/dL (0.76-1.46); THYROID STIMULATING HORMONE 0.98 uIU/mL (0.36-3.74)
[2021-05-16 17:33] LABS: GLUCOMETER DEV NAME(LOC) 5N.3; GLUCOSE,POINT OF CARE 230 MG/DL (70-110)
[2021-05-16 17:33] LABS: GLUCOMETER DEV NAME(LOC) 5N.3; GLUCOSE,POINT OF CARE 143 MG/DL (70-110)
[2021-05-16] MEDS: QUEtiapine FUMARATE 200 MG TABLET PO SCH (21:32)
[2021-05-16] MEDS: KETOROLAC TROMETHAMINE 15 MG/ML VIAL IVP PRN (22:03)
[2021-05-17] MEDS: PIPERACILLIN/TAZO 3.375 GM/D5W 50 ML IV SCH ×4 (03:15→20:08)
[2021-05-17] MEDS: SODIUM CHLORIDE 0.9% 1,000 ML IV SCH (03:18)
[2021-05-17 05:03] VITALS: BP 99/58
[2021-05-17 06:49] LABS: BASOPHILS % (AUTO) 0.9 % (0.0-2.0); EOSINOPHILS % (AUTO) 1.5 % (1.0-6.0); HEMATOCRIT 27.2 % (41-53); HEMOGLOBIN 9.1 g/dL (13.5-17.5); LYMPHOCYTES # (AUTO) 1.4 K/uL (1.0-4.8); LYMPHOCYTES % (AUTO) 18.4 % (22.0-44.0); MEAN CORPUSCULAR HEMOGLOBIN 32.9 pg (26.0-34.0); MEAN CORPUSCULAR HGB CONC 33.4 G/dL (31.0-37.0); MEAN CORPUSCULAR VOLUME 99 fL (80-100); MONOCYTES # (AUTO) 0.6 K/uL (0.1-1.0); MONOCYTES % (AUTO) 8.1 % (2.0-9.0); NEUTROPHILS # (AUTO) 5.4 K/uL (1.8-7.7); NEUTROPHILS % (AUTO) 71.1 % (40.0-70.0); PLATELET COUNT (AUTO) 593 K/uL (150-450); RED BLOOD CELL COUNT(AUTO) 2.76 MIL/uL (4.50-5.90); RED CELL DISTRIBUTION WIDTH 15.7 % (11.5-14.5)
[2021-05-17 07:20] LABS: ALANINE AMINOTRANSFERASE 41 U/L (12-78); ALBUMIN 1.5 g/dL (3.4-5.0); ALKALINE PHOSPHATASE 81 U/L (46-116); ANION GAP 7 mmol/L (8-16); ASPARTATE AMINOTRANSFERASE 23 U/L (15-37); BILIRUBIN,TOTAL 0.1 mg/dL (0.1-1.0); CALCIUM, TOTAL 8.6 mg/dL (8.8-10.5); CARBON DIOXIDE 26 mmol/L (22-29); CHLORIDE 105 mmol/L (98-107); GLOMERULAR FILTR. RATE CALC > 60 mL/min (>60); GLUCOSE,RANDOM 104 mg/dL (70-110); POTASSIUM 4.3 mmol/L (3.5-5.1); SODIUM SERUM 138 mmol/L (136-145); TOTAL PROTEIN, SERUM 6.5 g/dL (6.4-8.2); UREA NITROGEN, BLOOD 12 mg/dL (7-18); VANCOMYCIN,RANDOM 15.8 mcg/mL (25.0-50.0)
[2021-05-17 08:07] VITALS: BP 113/63
[2021-05-17] MEDS: QUEtiapine FUMARATE 100 MG TABLET PO SCH (08:07)
[2021-05-17] MEDS: FOLIC ACID 1 MG TABLET PO SCH (08:07)
[2021-05-17] MEDS: APIXABAN 5 MG TABLET PO SCH ×2 (08:07→20:03)
[2021-05-17] MEDS: MULTIVITAMINS WITH MINERALS, THERAPEUTIC TABLET PO SCH (08:07)
[2021-05-17] MEDS: THIAMINE 100 MG TABLET PO SCH (08:07)
[2021-05-17] MEDS: VANCOMYCIN HCL 750 MG in DEXTROSE 5%-WATER 250 ML IV SCH (09:15)
[2021-05-17] MEDS: KETOROLAC TROMETHAMINE 15 MG/ML VIAL IVP PRN ×2 (11:45→20:03)
[2021-05-17] MEDS: INSULIN LISPRO 100 UNITS/ML SQ PRN (11:58)
[2021-05-17 12:44] VITALS: BP 104/65
[2021-05-17 16:27] VITALS: BP 98/64
[2021-05-17] MEDS: VANCOMYCIN HCL 1 GM/D5% WATER 200 ML IV SCH (16:56)
[2021-05-17 19:14] VITALS: BP 111/62
[2021-05-17] MEDS: QUEtiapine FUMARATE 200 MG TABLET PO SCH (20:04)
[2021-05-17 20:18] LABS: GLUCOMETER DEV NAME(LOC) 5S.1; GLUCOSE,POINT OF CARE 170 MG/DL (70-110)
[2021-05-17 20:19] LABS: GLUCOMETER DEV NAME(LOC) 5S.1; GLUCOSE,POINT OF CARE 118 MG/DL (70-110)
[2021-05-17 23:46] VITALS: BP 105/62
[2021-05-18] MEDS: VANCOMYCIN HCL 1 GM/D5% WATER 200 ML IV SCH ×4 (00:31→23:30)
[2021-05-18] MEDS: SODIUM CHLORIDE 0.9% 1,000 ML IV SCH (00:31)
[2021-05-18] MEDS: PIPERACILLIN/TAZO 3.375 GM/D5W 50 ML IV SCH ×4 (02:57→20:29)
[2021-05-18 04:05] VITALS: BP 105/62
[2021-05-18 06:19] LABS: GLUCOMETER DEV NAME(LOC) 5N.3; GLUCOSE,POINT OF CARE 99 MG/DL (70-110)
[2021-05-18 06:19] LABS: GLUCOMETER DEV NAME(LOC) 5N.3; GLUCOSE,POINT OF CARE 151 MG/DL (70-110)
[2021-05-18 06:27] LABS: EOSINOPHILS % (AUTO) 2.1 % (1.0-6.0); HEMATOCRIT 27.8 % (41-53); HEMOGLOBIN 9.4 g/dL (13.5-17.5); LYMPHOCYTES # (AUTO) 1.5 K/uL (1.0-4.8); LYMPHOCYTES % (AUTO) 20.4 % (22.0-44.0); MEAN CORPUSCULAR HEMOGLOBIN 33.3 pg (26.0-34.0); MEAN CORPUSCULAR HGB CONC 33.9 G/dL (31.0-37.0); MEAN CORPUSCULAR VOLUME 99 fL (80-100); MONOCYTES # (AUTO) 0.6 K/uL (0.1-1.0); MONOCYTES % (AUTO) 8.4 % (2.0-9.0); NEUTROPHILS # (AUTO) 5.2 K/uL (1.8-7.7); NEUTROPHILS % (AUTO) 68.1 % (40.0-70.0); PLATELET COUNT (AUTO) 676 K/uL (150-450); RED BLOOD CELL COUNT(AUTO) 2.82 MIL/uL (4.50-5.90); RED CELL DISTRIBUTION WIDTH 15.3 % (11.5-14.5)
[2021-05-18 06:32] LABS: GLUCOMETER DEV NAME(LOC) 5S.1; GLUCOSE,POINT OF CARE 99 MG/DL (70-110)
[2021-05-18 06:41] LABS: ANION GAP 7 mmol/L (8-16); CALCIUM, TOTAL 8.7 mg/dL (8.8-10.5); CARBON DIOXIDE 29 mmol/L (22-29); CHLORIDE 106 mmol/L (98-107); CREATININE 0.94 mg/dL (0.60-1.30); GLOMERULAR FILTR. RATE CALC > 60 mL/min (>60); GLUCOSE,RANDOM 106 mg/dL (70-110); POTASSIUM 4.3 mmol/L (3.5-5.1); SODIUM SERUM 142 mmol/L (136-145); UREA NITROGEN, BLOOD 13 mg/dL (7-18)
[2021-05-18 07:55] VITALS: BP 106/78
[2021-05-18] MEDS: APIXABAN 5 MG TABLET PO SCH ×2 (09:00→20:39)
[2021-05-18] MEDS: QUEtiapine FUMARATE 100 MG TABLET PO SCH ×2 (09:00→11:19)
[2021-05-18] MEDS: FOLIC ACID 1 MG TABLET PO SCH ×2 (09:00→11:22)
[2021-05-18] MEDS: THIAMINE 100 MG TABLET PO SCH ×2 (09:00→11:23)
[2021-05-18] MEDS: MULTIVITAMINS WITH MINERALS, THERAPEUTIC TABLET PO SCH ×2 (09:00→11:19)
[2021-05-18 12:00] VITALS: BP 111/74
[2021-05-18 12:40] LABS: GLUCOMETER DEV NAME(LOC) 5N.3; GLUCOSE,POINT OF CARE 73 MG/DL (70-110)
[2021-05-18] MEDS ORDERED: TAMSULOSIN HCL 0.4 MG CAPSULE PO ONE (14:30)
[2021-05-18 17:00] VITALS: BP 105/65
[2021-05-18 18:25] LABS: GLUCOMETER DEV NAME(LOC) 5N.3; GLUCOSE,POINT OF CARE 135 MG/DL (70-110)
[2021-05-18 20:00] VITALS: BP 116/72
[2021-05-18] MEDS: QUEtiapine FUMARATE 200 MG TABLET PO SCH (20:39)
[2021-05-18] MEDS: INSULIN LISPRO 100 UNITS/ML SQ PRN (22:00)
[2021-05-19 00:09] VITALS: BP 108/58
[2021-05-19] MEDS: PIPERACILLIN/TAZO 3.375 GM/D5W 50 ML IV SCH ×2 (01:56→08:13)
[2021-05-19 05:25] VITALS: BP 107/65
[2021-05-19 07:05] VITALS: BP 97/59
[2021-05-19 07:23] LABS: ANION GAP 7 mmol/L (8-16); CALCIUM, TOTAL 8.8 mg/dL (8.8-10.5); CARBON DIOXIDE 30 mmol/L (22-29); CHLORIDE 103 mmol/L (98-107); CREATININE 0.97 mg/dL (0.60-1.30); GLOMERULAR FILTR. RATE CALC > 60 mL/min (>60); GLUCOSE,RANDOM 136 mg/dL (70-110); SODIUM SERUM 140 mmol/L (136-145); UREA NITROGEN, BLOOD 13 mg/dL (7-18); VANCOMYCIN,RANDOM 22.6 mcg/mL (25.0-50.0)
[2021-05-19] MEDS: VANCOMYCIN HCL 1 GM/D5% WATER 200 ML IV SCH ×2 (08:00→16:00)
[2021-05-19] MEDS: MULTIVITAMINS WITH MINERALS, THERAPEUTIC TABLET PO SCH (08:12)
[2021-05-19] MEDS: FOLIC ACID 1 MG TABLET PO SCH (08:12)
[2021-05-19] MEDS: THIAMINE 100 MG TABLET PO SCH (08:12)
[2021-05-19] MEDS: APIXABAN 5 MG TABLET PO SCH ×2 (08:13→20:31)
[2021-05-19] MEDS: TAMSULOSIN HCL 0.4 MG CAPSULE PO SCH (08:24)
[2021-05-19] MEDS: QUEtiapine FUMARATE 100 MG TABLET PO SCH (09:00)
[2021-05-19 11:09] VITALS: BP 118/48
[2021-05-19] MEDS: ACETAMINOPHEN 325 MG TABLET PO PRN (12:29)
[2021-05-19 15:39] VITALS: BP 98/48
[2021-05-19 17:15] LABS: GLUCOMETER DEV NAME(LOC) 5S.1; GLUCOSE,POINT OF CARE 170 MG/DL (70-110)
[2021-05-19 17:15] LABS: GLUCOMETER DEV NAME(LOC) 5S.1; GLUCOSE,POINT OF CARE 122 MG/DL (70-110)
[2021-05-19 17:15] LABS: GLUCOMETER DEV NAME(LOC) 5S.1; GLUCOSE,POINT OF CARE 169 MG/DL (70-110)
[2021-05-19 19:25] VITALS: BP 117/75
[2021-05-19] MEDS: QUEtiapine FUMARATE 200 MG TABLET PO SCH (20:31)
[2021-05-19] MEDS: ETHYL ALCOHOL 62% ANTISEPTIC NASAL INHALANT 0.6 ML AMPUL NASAL SCH (20:31)
[2021-05-19] MEDS: INSULIN LISPRO 100 UNITS/ML SQ PRN (20:44)
[2021-05-20 01:18] LABS: GLUCOMETER DEV NAME(LOC) 5S.2B; GLUCOSE,POINT OF CARE 144 MG/DL (70-110)
[2021-05-20] MEDS: VANCOMYCIN HCL 1 GM/D5% WATER 200 ML IV SCH ×3 (03:50→16:00)
[2021-05-20 06:21] LABS: GLUCOMETER DEV NAME(LOC) 5S.1; GLUCOSE,POINT OF CARE 113 MG/DL (70-110)
[2021-05-20 06:40] LABS: ANION GAP 6 mmol/L (8-16); CALCIUM, TOTAL 8.5 mg/dL (8.8-10.5); CARBON DIOXIDE 29 mmol/L (22-29); CHLORIDE 106 mmol/L (98-107); CREATININE 0.83 mg/dL (0.60-1.30); GLOMERULAR FILTR. RATE CALC > 60 mL/min (>60); GLUCOSE,RANDOM 134 mg/dL (70-110); POTASSIUM 3.9 mmol/L (3.5-5.1); SODIUM SERUM 141 mmol/L (136-145); UREA NITROGEN, BLOOD 11 mg/dL (7-18)
[2021-05-20 07:55] VITALS: BP 115/79
[2021-05-20] MEDS: THIAMINE 100 MG TABLET PO SCH (08:52)
[2021-05-20] MEDS: ETHYL ALCOHOL 62% ANTISEPTIC NASAL INHALANT 0.6 ML AMPUL NASAL SCH ×2 (08:52→21:18)
[2021-05-20] MEDS: TAMSULOSIN HCL 0.4 MG CAPSULE PO SCH (08:53)
[2021-05-20] MEDS: MULTIVITAMINS WITH MINERALS, THERAPEUTIC TABLET PO SCH (08:53)
[2021-05-20] MEDS: APIXABAN 5 MG TABLET PO SCH ×2 (08:53→21:18)
[2021-05-20] MEDS: QUEtiapine FUMARATE 100 MG TABLET PO SCH (08:53)
[2021-05-20] MEDS: FOLIC ACID 1 MG TABLET PO SCH (08:53)
[2021-05-20] MEDS ORDERED: ETHYL ALCOHOL 62% ANTISEPTIC NASAL INHALANT 0.6 ML AMPUL NASAL SCH (09:00)
[2021-05-20 11:07] LABS: LDH,BODY FLUID,REF >18000 IU/L
[2021-05-20 11:32] VITALS: BP 109/70
[2021-05-20 16:20] VITALS: BP 109/66
[2021-05-20 17:41] LABS: GLUCOMETER DEV NAME(LOC) 5S.2B; GLUCOSE,POINT OF CARE 107 MG/DL (70-110)
[2021-05-20 20:15] LABS: GLUCOMETER DEV NAME(LOC) 5N.3; GLUCOSE,POINT OF CARE 78 MG/DL (70-110)
[2021-05-20 20:22] VITALS: BP 114/77
[2021-05-20] MEDS: QUEtiapine FUMARATE 200 MG TABLET PO SCH (21:18)
[2021-05-21 00:05] VITALS: BP 101/55
[2021-05-21] MEDS: VANCOMYCIN HCL 1 GM/D5% WATER 200 ML IV SCH ×3 (00:35→17:35)
[2021-05-21 04:17] LABS: GLUCOMETER DEV NAME(LOC) 5S.2B; GLUCOSE,POINT OF CARE 119 MG/DL (70-110)
[2021-05-21 04:41] VITALS: BP 106/66
[2021-05-21] MEDS: ACETAMINOPHEN 325 MG TABLET PO PRN ×2 (05:11→11:46)
[2021-05-21] MEDS ORDERED: SODIUM CHLORIDE 0.9% 100 ML ONE (06:33)
[2021-05-21 07:03] LABS: ANION GAP 7 mmol/L (8-16); CALCIUM, TOTAL 8.9 mg/dL (8.8-10.5); CARBON DIOXIDE 29 mmol/L (22-29); CHLORIDE 104 mmol/L (98-107); CREATININE 0.83 mg/dL (0.60-1.30); GLOMERULAR FILTR. RATE CALC > 60 mL/min (>60); GLUCOSE,RANDOM 100 mg/dL (70-110); SODIUM SERUM 140 mmol/L (136-145); UREA NITROGEN, BLOOD 11 mg/dL (7-18)
[2021-05-21 07:23] VITALS: BP 104/72
[2021-05-21] MEDS: APIXABAN 5 MG TABLET PO SCH ×2 (08:42→20:29)
[2021-05-21] MEDS: MULTIVITAMINS WITH MINERALS, THERAPEUTIC TABLET PO SCH (08:42)
[2021-05-21] MEDS: ETHYL ALCOHOL 62% ANTISEPTIC NASAL INHALANT 0.6 ML AMPUL NASAL SCH ×2 (08:42→20:29)
[2021-05-21] MEDS: FOLIC ACID 1 MG TABLET PO SCH (08:42)
[2021-05-21] MEDS: QUEtiapine FUMARATE 100 MG TABLET PO SCH (08:42)
[2021-05-21] MEDS: TAMSULOSIN HCL 0.4 MG CAPSULE PO SCH (08:42)
[2021-05-21] MEDS: THIAMINE 100 MG TABLET PO SCH (08:42)
[2021-05-21 11:33] VITALS: BP 98/62
[2021-05-21 15:42] VITALS: BP 102/66
[2021-05-21 20:07] VITALS: BP 120/66
[2021-05-21] MEDS: QUEtiapine FUMARATE 200 MG TABLET PO SCH (20:29)
[2021-05-21 20:31] LABS: GLUCOMETER DEV NAME(LOC) 5N.3; GLUCOSE,POINT OF CARE 121 MG/DL (70-110)
[2021-05-21 20:31] LABS: GLUCOMETER DEV NAME(LOC) 5N.3; GLUCOSE,POINT OF CARE 100 MG/DL (70-110)
[2021-05-21 20:31] LABS: GLUCOMETER DEV NAME(LOC) 5N.3; GLUCOSE,POINT OF CARE 125 MG/DL (70-110)
[2021-05-21 23:27] LABS: GLUCOMETER DEV NAME(LOC) 5S.2B; GLUCOSE,POINT OF CARE 101 MG/DL (70-110)
[2021-05-22 00:08] LABS: GLUCOMETER DEV NAME(LOC) 5N.1C; GLUCOSE,POINT OF CARE 129 MG/DL (70-110)
[2021-05-22 00:13] VITALS: BP 106/63
[2021-05-22] MEDS: VANCOMYCIN HCL 1 GM/D5% WATER 200 ML IV SCH ×2 (00:21→09:08)
[2021-05-22 04:14] VITALS: BP 111/55
[2021-05-22 07:12] LABS: ANION GAP 4 mmol/L (8-16); CALCIUM, TOTAL 9.1 mg/dL (8.8-10.5); CARBON DIOXIDE 29 mmol/L (22-29); CHLORIDE 105 mmol/L (98-107); CREATININE 0.98 mg/dL (0.60-1.30); GLOMERULAR FILTR. RATE CALC > 60 mL/min (>60); GLUCOSE,RANDOM 113 mg/dL (70-110); POTASSIUM 4.3 mmol/L (3.5-5.1); SODIUM SERUM 138 mmol/L (136-145); UREA NITROGEN, BLOOD 16 mg/dL (7-18); VANCOMYCIN,RANDOM 29.6 mcg/mL (25.0-50.0)
[2021-05-22 07:18] VITALS: BP 125/75
[2021-05-22] MEDS: APIXABAN 5 MG TABLET PO SCH ×2 (07:49→20:12)
[2021-05-22] MEDS: THIAMINE 100 MG TABLET PO SCH (07:49)
[2021-05-22] MEDS: MULTIVITAMINS WITH MINERALS, THERAPEUTIC TABLET PO SCH (07:50)
[2021-05-22] MEDS: TAMSULOSIN HCL 0.4 MG CAPSULE PO SCH (07:50)
[2021-05-22] MEDS: FOLIC ACID 1 MG TABLET PO SCH (07:50)
[2021-05-22] MEDS: QUEtiapine FUMARATE 100 MG TABLET PO SCH (07:53)
[2021-05-22] MEDS: ETHYL ALCOHOL 62% ANTISEPTIC NASAL INHALANT 0.6 ML AMPUL NASAL SCH ×2 (09:13→20:12)
[2021-05-22 10:37] VITALS: BP 103/59
[2021-05-22 15:22] VITALS: BP 108/67
[2021-05-22] MEDS: VANCOMYCIN HCL 750 MG in DEXTROSE 5%-WATER 250 ML IV SCH (16:34)
[2021-05-22 17:29] LABS: GLUCOMETER DEV NAME(LOC) 5N.1C; GLUCOSE,POINT OF CARE 134 MG/DL (70-110)
[2021-05-22 18:18] LABS: GLUCOMETER DEV NAME(LOC) 5S.1; GLUCOSE,POINT OF CARE 129 MG/DL (70-110)
[2021-05-22 19:51] VITALS: BP 110/61
[2021-05-22] MEDS ORDERED: MORPHINE SULFATE 2 MG/ML SYRINGE IVP ONE (20:00)
[2021-05-22] MEDS: QUEtiapine FUMARATE 200 MG TABLET PO SCH (20:12)
[2021-05-23] MEDS: VANCOMYCIN HCL 750 MG in DEXTROSE 5%-WATER 250 ML IV SCH ×4 (00:03→23:40)
[2021-05-23 00:21] VITALS: BP 100/62
[2021-05-23] MEDS: KETOROLAC TROMETHAMINE 15 MG/ML VIAL IVP PRN ×3 (01:42→21:56)
[2021-05-23 05:11] VITALS: BP 106/59
[2021-05-23 05:47] LABS: GLUCOMETER DEV NAME(LOC) 5N.3; GLUCOSE,POINT OF CARE 118 MG/DL (70-110)
[2021-05-23 05:47] LABS: GLUCOMETER DEV NAME(LOC) 5N.3; GLUCOSE,POINT OF CARE 132 MG/DL (70-110)
[2021-05-23 06:32] LABS: ANION GAP 3 mmol/L (8-16); CARBON DIOXIDE 30 mmol/L (22-29); CHLORIDE 107 mmol/L (98-107); GLOMERULAR FILTR. RATE CALC > 60 mL/min (>60); GLUCOSE,RANDOM 101 mg/dL (70-110); POTASSIUM 4.1 mmol/L (3.5-5.1); SODIUM SERUM 140 mmol/L (136-145); UREA NITROGEN, BLOOD 18 mg/dL (7-18)
[2021-05-23 07:13] VITALS: BP 99/58
[2021-05-23] MEDS: FOLIC ACID 1 MG TABLET PO SCH (09:05)
[2021-05-23] MEDS: APIXABAN 5 MG TABLET PO SCH ×2 (09:05→19:52)
[2021-05-23] MEDS: TAMSULOSIN HCL 0.4 MG CAPSULE PO SCH (09:05)
[2021-05-23] MEDS: MULTIVITAMINS WITH MINERALS, THERAPEUTIC TABLET PO SCH (09:05)
[2021-05-23] MEDS: THIAMINE 100 MG TABLET PO SCH (09:05)
[2021-05-23] MEDS: QUEtiapine FUMARATE 100 MG TABLET PO SCH (09:09)
[2021-05-23] MEDS: ETHYL ALCOHOL 62% ANTISEPTIC NASAL INHALANT 0.6 ML AMPUL NASAL SCH ×2 (09:23→19:52)
[2021-05-23] MEDS ORDERED: SODIUM CHLORIDE 0.9% 100 ML ONE (11:18)
[2021-05-23 11:53] VITALS: BP 119/76
[2021-05-23 14:54] LABS: GLUCOMETER DEV NAME(LOC) 5S.1; GLUCOSE,POINT OF CARE 104 MG/DL (70-110)
[2021-05-23 14:54] LABS: GLUCOMETER DEV NAME(LOC) 5S.1; GLUCOSE,POINT OF CARE 106 MG/DL (70-110)
[2021-05-23 15:21] VITALS: BP 111/67
[2021-05-23 18:18] LABS: GLUCOMETER DEV NAME(LOC) 5N.1C; GLUCOSE,POINT OF CARE 121 MG/DL (70-110)
[2021-05-23] MEDS: QUEtiapine FUMARATE 200 MG TABLET PO SCH (19:52)
[2021-05-23 20:23] LABS: GLUCOMETER DEV NAME(LOC) 5N.1C; GLUCOSE,POINT OF CARE 117 MG/DL (70-110)
[2021-05-23 20:53] VITALS: BP 129/76
[2021-05-24] VITALS (7 sets, daily range): BP systolic 98–141; BP diastolic 51–76
[2021-05-24 07:25] LABS: ANION GAP 5 mmol/L (8-16); CARBON DIOXIDE 29 mmol/L (22-29); CHLORIDE 105 mmol/L (98-107); CREATININE 0.94 mg/dL (0.60-1.30); GLOMERULAR FILTR. RATE CALC > 60 mL/min (>60); GLUCOSE,RANDOM 115 mg/dL (70-110); POTASSIUM 4.6 mmol/L (3.5-5.1); SODIUM SERUM 139 mmol/L (136-145); UREA NITROGEN, BLOOD 23 mg/dL (7-18); VANCOMYCIN,RANDOM 22.2 mcg/mL (25.0-50.0)
[2021-05-24 08:35] LABS: GLUCOMETER DEV NAME(LOC) 5S.1; GLUCOSE,POINT OF CARE 100 MG/DL (70-110)
[2021-05-24] MEDS: FOLIC ACID 1 MG TABLET PO SCH (09:01)
[2021-05-24] MEDS: APIXABAN 5 MG TABLET PO SCH ×2 (09:01→20:36)
[2021-05-24] MEDS: THIAMINE 100 MG TABLET PO SCH (09:01)
[2021-05-24] MEDS: ETHYL ALCOHOL 62% ANTISEPTIC NASAL INHALANT 0.6 ML AMPUL NASAL SCH ×2 (09:01→21:11)
[2021-05-24] MEDS: QUEtiapine FUMARATE 100 MG TABLET PO SCH (09:01)
[2021-05-24] MEDS: MULTIVITAMINS WITH MINERALS, THERAPEUTIC TABLET PO SCH (09:01)
[2021-05-24] MEDS: VANCOMYCIN HCL 750 MG in DEXTROSE 5%-WATER 250 ML IV SCH ×3 (09:02→23:34)
[2021-05-24] MEDS: TAMSULOSIN HCL 0.4 MG CAPSULE PO SCH (09:03)
[2021-05-24 12:08] LABS: ALANINE AMINOTRANSFERASE 31 U/L (12-78); ALBUMIN 2.1 g/dL (3.4-5.0); ALKALINE PHOSPHATASE 80 U/L (46-116); ASPARTATE AMINOTRANSFERASE 20 U/L (15-37); BILIRUBIN,TOTAL 0.1 mg/dL (0.1-1.0)
[2021-05-24 12:20] LABS: EOSINOPHILS % (AUTO) 3.3 % (1.0-6.0); HEMATOCRIT 28.7 % (41-53); HEMOGLOBIN 9.4 g/dL (13.5-17.5); LYMPHOCYTES # (AUTO) 1.6 K/uL (1.0-4.8); MEAN CORPUSCULAR HEMOGLOBIN 32.3 pg (26.0-34.0); MEAN CORPUSCULAR HGB CONC 32.6 G/dL (31.0-37.0); MEAN CORPUSCULAR VOLUME 99 fL (80-100); MONOCYTES # (AUTO) 0.6 K/uL (0.1-1.0); MONOCYTES % (AUTO) 11.4 % (2.0-9.0); NEUTROPHILS # (AUTO) 3.1 K/uL (1.8-7.7); NEUTROPHILS % (AUTO) 56.3 % (40.0-70.0); PLATELET COUNT (AUTO) 523 K/uL (150-450); RED CELL DISTRIBUTION WIDTH 15.6 % (11.5-14.5)
[2021-05-24 12:36] LABS: GLUCOMETER DEV NAME(LOC) 5N.1C; GLUCOSE,POINT OF CARE 89 MG/DL (70-110)
[2021-05-24] MEDS: ACETAMINOPHEN 325 MG TABLET PO PRN (17:47)
[2021-05-24] MEDS: QUEtiapine FUMARATE 200 MG TABLET PO SCH (20:36)
[2021-05-24] MEDS ORDERED: MORPHINE SULFATE 2 MG/ML SYRINGE IVP ONE (21:00)
[2021-05-25 01:43] LABS: GLUCOMETER DEV NAME(LOC) 5N.1C; GLUCOSE,POINT OF CARE 103 MG/DL (70-110)
[2021-05-25 02:00] LABS: GLUCOMETER DEV NAME(LOC) 5S.1; GLUCOSE,POINT OF CARE 128 MG/DL (70-110)
[2021-05-25 04:00] VITALS: BP 112/62
[2021-05-25 05:59] LABS: BASOPHILS % (AUTO) 0.8 % (0.0-2.0); EOSINOPHILS % (AUTO) 2.7 % (1.0-6.0); HEMATOCRIT 27.3 % (41-53); HEMOGLOBIN 9.2 g/dL (13.5-17.5); LYMPHOCYTES # (AUTO) 1.8 K/uL (1.0-4.8); LYMPHOCYTES % (AUTO) 29.8 % (22.0-44.0); MEAN CORPUSCULAR HEMOGLOBIN 32.9 pg (26.0-34.0); MEAN CORPUSCULAR HGB CONC 33.6 G/dL (31.0-37.0); MEAN CORPUSCULAR VOLUME 98 fL (80-100); MONOCYTES # (AUTO) 0.7 K/uL (0.1-1.0); MONOCYTES % (AUTO) 11.5 % (2.0-9.0); NEUTROPHILS # (AUTO) 3.4 K/uL (1.8-7.7); NEUTROPHILS % (AUTO) 55.2 % (40.0-70.0); PLATELET COUNT (AUTO) 532 K/uL (150-450); RED BLOOD CELL COUNT(AUTO) 2.79 MIL/uL (4.50-5.90); RED CELL DISTRIBUTION WIDTH 16.7 % (11.5-14.5)
[2021-05-25 06:15] LABS: ALANINE AMINOTRANSFERASE 34 U/L (12-78); ALBUMIN 2.2 g/dL (3.4-5.0); ALKALINE PHOSPHATASE 88 U/L (46-116); ANION GAP 10 mmol/L (8-16); ASPARTATE AMINOTRANSFERASE 17 U/L (15-37); BILIRUBIN,TOTAL 0.1 mg/dL (0.1-1.0); CALCIUM, TOTAL 9.2 mg/dL (8.8-10.5); CARBON DIOXIDE 30 mmol/L (22-29); CHLORIDE 102 mmol/L (98-107); CREATININE 0.92 mg/dL (0.60-1.30); GLOMERULAR FILTR. RATE CALC > 60 mL/min (>60); GLUCOSE,RANDOM 91 mg/dL (70-110); POTASSIUM 4.2 mmol/L (3.5-5.1); SODIUM SERUM 142 mmol/L (136-145); TOTAL PROTEIN, SERUM 7.3 g/dL (6.4-8.2); UREA NITROGEN, BLOOD 18 mg/dL (7-18)
[2021-05-25 06:45] LABS: GLUCOMETER DEV NAME(LOC) 5S.1; GLUCOSE,POINT OF CARE 136 MG/DL (70-110)
[2021-05-25 07:40] VITALS: BP 121/85
[2021-05-25] MEDS: TAMSULOSIN HCL 0.4 MG CAPSULE PO SCH (08:09)
[2021-05-25] MEDS: ETHYL ALCOHOL 62% ANTISEPTIC NASAL INHALANT 0.6 ML AMPUL NASAL SCH ×2 (08:09→20:50)
[2021-05-25] MEDS: APIXABAN 5 MG TABLET PO SCH ×2 (08:09→20:29)
[2021-05-25] MEDS: VANCOMYCIN HCL 750 MG in DEXTROSE 5%-WATER 250 ML IV SCH ×2 (08:09→16:57)
[2021-05-25] MEDS: QUEtiapine FUMARATE 100 MG TABLET PO SCH (08:09)
[2021-05-25] MEDS: THIAMINE 100 MG TABLET PO SCH (08:09)
[2021-05-25] MEDS: MULTIVITAMINS WITH MINERALS, THERAPEUTIC TABLET PO SCH (08:09)
[2021-05-25] MEDS: FOLIC ACID 1 MG TABLET PO SCH (08:09)
[2021-05-25 12:31] LABS: GLUCOMETER DEV NAME(LOC) 5N.1C; GLUCOSE,POINT OF CARE 118 MG/DL (70-110)
[2021-05-25 13:43] VITALS: BP 98/58
[2021-05-25 16:45] VITALS: BP 110/74
[2021-05-25 19:50] VITALS: BP 113/70
[2021-05-25] MEDS: QUEtiapine FUMARATE 200 MG TABLET PO SCH (20:29)
[2021-05-25] MEDS: ACETAMINOPHEN 325 MG TABLET PO PRN (20:29)
[2021-05-25 20:48] LABS: GLUCOMETER DEV NAME(LOC) 5N.1C; GLUCOSE,POINT OF CARE 95 MG/DL (70-110)
[2021-05-25 20:52] LABS: GLUCOMETER DEV NAME(LOC) 5N.1C; GLUCOSE,POINT OF CARE 134 MG/DL (70-110)
[2021-05-26 00:14] VITALS: BP 94/58
[2021-05-26] MEDS: VANCOMYCIN HCL 750 MG in DEXTROSE 5%-WATER 250 ML IV SCH ×4 (00:17→23:59)
[2021-05-26 05:18] VITALS: BP 102/64
[2021-05-26 06:15] LABS: BASOPHILS % (AUTO) 0.8 % (0.0-2.0); EOSINOPHILS % (AUTO) 3.1 % (1.0-6.0); HEMATOCRIT 28.8 % (41-53); HEMOGLOBIN 9.7 g/dL (13.5-17.5); LYMPHOCYTES # (AUTO) 1.5 K/uL (1.0-4.8); MEAN CORPUSCULAR HEMOGLOBIN 32.9 pg (26.0-34.0); MEAN CORPUSCULAR HGB CONC 33.7 G/dL (31.0-37.0); MEAN CORPUSCULAR VOLUME 98 fL (80-100); MONOCYTES # (AUTO) 0.7 K/uL (0.1-1.0); MONOCYTES % (AUTO) 12.8 % (2.0-9.0); NEUTROPHILS # (AUTO) 3.1 K/uL (1.8-7.7); NEUTROPHILS % (AUTO) 55.3 % (40.0-70.0); PLATELET COUNT (AUTO) 546 K/uL (150-450); RED BLOOD CELL COUNT(AUTO) 2.95 MIL/uL (4.50-5.90); RED CELL DISTRIBUTION WIDTH 15.8 % (11.5-14.5)
[2021-05-26 06:43] LABS: ALANINE AMINOTRANSFERASE 27 U/L (12-78); ALBUMIN 2.1 g/dL (3.4-5.0); ALKALINE PHOSPHATASE 87 U/L (46-116); ANION GAP 4 mmol/L (8-16); ASPARTATE AMINOTRANSFERASE 17 U/L (15-37); BILIRUBIN,TOTAL 0.1 mg/dL (0.1-1.0); CALCIUM, TOTAL 9.3 mg/dL (8.8-10.5); CARBON DIOXIDE 31 mmol/L (22-29); CHLORIDE 104 mmol/L (98-107); CREATININE 0.87 mg/dL (0.60-1.30); GLOMERULAR FILTR. RATE CALC > 60 mL/min (>60); GLUCOSE,RANDOM 121 mg/dL (70-110); POTASSIUM 4.1 mmol/L (3.5-5.1); SODIUM SERUM 139 mmol/L (136-145); UREA NITROGEN, BLOOD 17 mg/dL (7-18)
[2021-05-26 07:10] VITALS: BP 101/85
[2021-05-26] MEDS: MULTIVITAMINS WITH MINERALS, THERAPEUTIC TABLET PO SCH (08:48)
[2021-05-26] MEDS: QUEtiapine FUMARATE 100 MG TABLET PO SCH (08:48)
[2021-05-26] MEDS: TAMSULOSIN HCL 0.4 MG CAPSULE PO SCH (08:49)
[2021-05-26] MEDS: FOLIC ACID 1 MG TABLET PO SCH (08:49)
[2021-05-26] MEDS: APIXABAN 5 MG TABLET PO SCH ×2 (08:49→21:06)
[2021-05-26] MEDS: THIAMINE 100 MG TABLET PO SCH (08:49)
[2021-05-26] MEDS: ETHYL ALCOHOL 62% ANTISEPTIC NASAL INHALANT 0.6 ML AMPUL NASAL SCH ×2 (09:37→21:06)
[2021-05-26] MEDS: INSULIN LISPRO 100 UNITS/ML SQ PRN (12:06)
[2021-05-26 12:26] VITALS: BP 98/62
[2021-05-26 15:55] VITALS: BP 119/74
[2021-05-26 18:44] LABS: GLUCOMETER DEV NAME(LOC) 5S.1; GLUCOSE,POINT OF CARE 159 MG/DL (70-110)
[2021-05-26 19:29] VITALS: BP 121/75
[2021-05-26] MEDS: QUEtiapine FUMARATE 200 MG TABLET PO SCH (21:06)
[2021-05-26] MEDS: ACETAMINOPHEN 325 MG TABLET PO PRN (21:07)
[2021-05-26 23:15] LABS: GLUCOMETER DEV NAME(LOC) 5S.1; GLUCOSE,POINT OF CARE 107 MG/DL (70-110)
[2021-05-27] MEDS ORDERED: SODIUM CHLORIDE 0.9% 500 ML IV ONE (00:04)
[2021-05-27 00:07] LABS: GLUCOMETER DEV NAME(LOC) 5S.2B; GLUCOSE,POINT OF CARE 82 MG/DL (70-110)
[2021-05-27 00:32] VITALS: BP 94/61
[2021-05-27 04:51] VITALS: BP 104/51
[2021-05-27] MEDS: ETHYL ALCOHOL 62% ANTISEPTIC NASAL INHALANT 0.6 ML AMPUL NASAL SCH ×2 (07:30→20:11)
[2021-05-27 07:54] VITALS: BP 100/60
[2021-05-27] MEDS: MULTIVITAMINS WITH MINERALS, THERAPEUTIC TABLET PO SCH (08:11)
[2021-05-27] MEDS: VANCOMYCIN HCL 750 MG in DEXTROSE 5%-WATER 250 ML IV SCH ×3 (08:11→23:57)
[2021-05-27] MEDS: THIAMINE 100 MG TABLET PO SCH (08:11)
[2021-05-27] MEDS: APIXABAN 5 MG TABLET PO SCH ×2 (08:12→20:10)
[2021-05-27] MEDS: FOLIC ACID 1 MG TABLET PO SCH (08:12)
[2021-05-27] MEDS: TAMSULOSIN HCL 0.4 MG CAPSULE PO SCH (08:12)
[2021-05-27] MEDS: QUEtiapine FUMARATE 100 MG TABLET PO SCH (08:13)
[2021-05-27 08:23] LABS: BASOPHILS % (AUTO) 1.1 % (0.0-2.0); HEMOGLOBIN 9.7 g/dL (13.5-17.5); LYMPHOCYTES # (AUTO) 1.3 K/uL (1.0-4.8); LYMPHOCYTES % (AUTO) 25.8 % (22.0-44.0); MEAN CORPUSCULAR HEMOGLOBIN 32.4 pg (26.0-34.0); MEAN CORPUSCULAR HGB CONC 33.5 G/dL (31.0-37.0); MEAN CORPUSCULAR VOLUME 97 fL (80-100); MONOCYTES # (AUTO) 0.7 K/uL (0.1-1.0); MONOCYTES % (AUTO) 13.1 % (2.0-9.0); PLATELET COUNT (AUTO) 479 K/uL (150-450); RED CELL DISTRIBUTION WIDTH 15.6 % (11.5-14.5)
[2021-05-27 08:48] LABS: ALANINE AMINOTRANSFERASE 27 U/L (12-78); ALBUMIN 2.3 g/dL (3.4-5.0); ALKALINE PHOSPHATASE 87 U/L (46-116); ANION GAP 8 mmol/L (8-16); ASPARTATE AMINOTRANSFERASE 14 U/L (15-37); BILIRUBIN,TOTAL 0.1 mg/dL (0.1-1.0); CALCIUM, TOTAL 9.2 mg/dL (8.8-10.5); CARBON DIOXIDE 31 mmol/L (22-29); CHLORIDE 104 mmol/L (98-107); CREATININE 0.88 mg/dL (0.60-1.30); GLOMERULAR FILTR. RATE CALC > 60 mL/min (>60); GLUCOSE,RANDOM 122 mg/dL (70-110); POTASSIUM 4.1 mmol/L (3.5-5.1); SODIUM SERUM 143 mmol/L (136-145); TOTAL PROTEIN, SERUM 7.2 g/dL (6.4-8.2); UREA NITROGEN, BLOOD 16 mg/dL (7-18); VANCOMYCIN,RANDOM 17.6 mcg/mL (25.0-50.0)
[2021-05-27] MEDS: ACETAMINOPHEN 325 MG TABLET PO PRN ×2 (10:48→20:11)
[2021-05-27 11:00] VITALS: BP 106/68
[2021-05-27 16:18] VITALS: BP 105/60
[2021-05-27 19:43] VITALS: BP 103/58
[2021-05-27 20:07] LABS: GLUCOMETER DEV NAME(LOC) 5N.3; GLUCOSE,POINT OF CARE 84 MG/DL (70-110)
[2021-05-27 20:07] LABS: GLUCOMETER DEV NAME(LOC) 5N.3; GLUCOSE,POINT OF CARE 124 MG/DL (70-110)
[2021-05-27] MEDS: QUEtiapine FUMARATE 200 MG TABLET PO SCH (20:10)
[2021-05-27 21:43] LABS: GLUCOMETER DEV NAME(LOC) 5S.2B; GLUCOSE,POINT OF CARE 139 MG/DL (70-110)
[2021-05-28 00:12] VITALS: BP 93/61
[2021-05-28 04:04] VITALS: BP 115/73
[2021-05-28 06:10] LABS: BASOPHILS % (AUTO) 0.7 % (0.0-2.0); EOSINOPHILS % (AUTO) 2.6 % (1.0-6.0); HEMOGLOBIN 9.6 g/dL (13.5-17.5); LYMPHOCYTES # (AUTO) 1.3 K/uL (1.0-4.8); LYMPHOCYTES % (AUTO) 22.6 % (22.0-44.0); MEAN CORPUSCULAR HEMOGLOBIN 32.2 pg (26.0-34.0); MEAN CORPUSCULAR HGB CONC 33.2 G/dL (31.0-37.0); MEAN CORPUSCULAR VOLUME 97 fL (80-100); MONOCYTES # (AUTO) 0.9 K/uL (0.1-1.0); MONOCYTES % (AUTO) 14.7 % (2.0-9.0); NEUTROPHILS # (AUTO) 3.5 K/uL (1.8-7.7); NEUTROPHILS % (AUTO) 59.4 % (40.0-70.0); PLATELET COUNT (AUTO) 461 K/uL (150-450); RED BLOOD CELL COUNT(AUTO) 2.99 MIL/uL (4.50-5.90); RED CELL DISTRIBUTION WIDTH 15.5 % (11.5-14.5)
[2021-05-28 06:45] LABS: ALANINE AMINOTRANSFERASE 24 U/L (12-78); ALBUMIN 2.3 g/dL (3.4-5.0); ALKALINE PHOSPHATASE 93 U/L (46-116); ANION GAP 5 mmol/L (8-16); ASPARTATE AMINOTRANSFERASE 14 U/L (15-37); BILIRUBIN,TOTAL 0.1 mg/dL (0.1-1.0); CALCIUM, TOTAL 9.2 mg/dL (8.8-10.5); CARBON DIOXIDE 31 mmol/L (22-29); CHLORIDE 103 mmol/L (98-107); CREATININE 0.85 mg/dL (0.60-1.30); GLOMERULAR FILTR. RATE CALC > 60 mL/min (>60); GLUCOSE,RANDOM 102 mg/dL (70-110); POTASSIUM 4.2 mmol/L (3.5-5.1); SODIUM SERUM 139 mmol/L (136-145); TOTAL PROTEIN, SERUM 7.2 g/dL (6.4-8.2); UREA NITROGEN, BLOOD 16 mg/dL (7-18)
[2021-05-28 07:13] VITALS: BP 112/65
[2021-05-28] MEDS: VANCOMYCIN HCL 750 MG in DEXTROSE 5%-WATER 250 ML IV SCH ×3 (09:06→23:54)
[2021-05-28] MEDS: THIAMINE 100 MG TABLET PO SCH (09:07)
[2021-05-28] MEDS: ETHYL ALCOHOL 62% ANTISEPTIC NASAL INHALANT 0.6 ML AMPUL NASAL SCH ×2 (09:07→20:36)
[2021-05-28] MEDS: APIXABAN 5 MG TABLET PO SCH ×2 (09:07→20:36)
[2021-05-28] MEDS: TAMSULOSIN HCL 0.4 MG CAPSULE PO SCH (09:07)
[2021-05-28] MEDS: FOLIC ACID 1 MG TABLET PO SCH (09:07)
[2021-05-28] MEDS: MULTIVITAMINS WITH MINERALS, THERAPEUTIC TABLET PO SCH (09:07)
[2021-05-28 09:16] LABS: GLUCOMETER DEV NAME(LOC) 5S.2B; GLUCOSE,POINT OF CARE 108 MG/DL (70-110)
[2021-05-28] MEDS: QUEtiapine FUMARATE 100 MG TABLET PO SCH (09:30)
[2021-05-28 11:17] VITALS: BP 108/66
[2021-05-28 12:53] LABS: GLUCOMETER DEV NAME(LOC) 5S.2B; GLUCOSE,POINT OF CARE 124 MG/DL (70-110)
[2021-05-28] MEDS: ACETAMINOPHEN 325 MG TABLET PO PRN (15:13)
[2021-05-28 15:35] VITALS: BP 109/66
[2021-05-28 19:48] LABS: GLUCOMETER DEV NAME(LOC) 5S.2B; GLUCOSE,POINT OF CARE 105 MG/DL (70-110)
[2021-05-28 20:00] VITALS: BP 104/58
[2021-05-28] MEDS: QUEtiapine FUMARATE 200 MG TABLET PO SCH (20:36)
[2021-05-29 00:10] VITALS: BP 108/61
[2021-05-29 03:49] VITALS: BP 123/77
[2021-05-29 06:24] LABS: GLUCOMETER DEV NAME(LOC) 5S.1; GLUCOSE,POINT OF CARE 112 MG/DL (70-110)
[2021-05-29 07:00] LABS: BASOPHILS % (AUTO) 0.8 % (0.0-2.0); EOSINOPHILS % (AUTO) 2.1 % (1.0-6.0); HEMATOCRIT 28.9 % (41-53); HEMOGLOBIN 9.6 g/dL (13.5-17.5); LYMPHOCYTES # (AUTO) 1.4 K/uL (1.0-4.8); LYMPHOCYTES % (AUTO) 22.5 % (22.0-44.0); MEAN CORPUSCULAR HEMOGLOBIN 31.9 pg (26.0-34.0); MEAN CORPUSCULAR HGB CONC 33.1 G/dL (31.0-37.0); MEAN CORPUSCULAR VOLUME 96 fL (80-100); MONOCYTES % (AUTO) 15.8 % (2.0-9.0); NEUTROPHILS # (AUTO) 3.7 K/uL (1.8-7.7); NEUTROPHILS % (AUTO) 58.8 % (40.0-70.0); PLATELET COUNT (AUTO) 463 K/uL (150-450); RED CELL DISTRIBUTION WIDTH 15.6 % (11.5-14.5)
[2021-05-29 07:18] LABS: ALANINE AMINOTRANSFERASE 18 U/L (12-78); ALBUMIN 2.3 g/dL (3.4-5.0); ALKALINE PHOSPHATASE 97 U/L (46-116); ANION GAP 6 mmol/L (8-16); ASPARTATE AMINOTRANSFERASE 10 U/L (15-37); BILIRUBIN,TOTAL 0.2 mg/dL (0.1-1.0); CARBON DIOXIDE 30 mmol/L (22-29); CHLORIDE 103 mmol/L (98-107); CREATININE 0.89 mg/dL (0.60-1.30); GLOMERULAR FILTR. RATE CALC > 60 mL/min (>60); GLUCOSE,RANDOM 128 mg/dL (70-110); POTASSIUM 4.2 mmol/L (3.5-5.1); SODIUM SERUM 139 mmol/L (136-145); TOTAL PROTEIN, SERUM 7.2 g/dL (6.4-8.2); UREA NITROGEN, BLOOD 14 mg/dL (7-18)
[2021-05-29] MEDS: FOLIC ACID 1 MG TABLET PO SCH (07:49)
[2021-05-29] MEDS: QUEtiapine FUMARATE 100 MG TABLET PO SCH (07:49)
[2021-05-29] MEDS: VANCOMYCIN HCL 750 MG in DEXTROSE 5%-WATER 250 ML IV SCH ×2 (07:49→16:18)
[2021-05-29] MEDS: MULTIVITAMINS WITH MINERALS, THERAPEUTIC TABLET PO SCH (07:49)
[2021-05-29] MEDS: APIXABAN 5 MG TABLET PO SCH (07:49)
[2021-05-29] MEDS: THIAMINE 100 MG TABLET PO SCH (07:49)
[2021-05-29] MEDS: TAMSULOSIN HCL 0.4 MG CAPSULE PO SCH (07:49)
[2021-05-29 08:02] VITALS: BP 108/66
[2021-05-29] MEDS: ETHYL ALCOHOL 62% ANTISEPTIC NASAL INHALANT 0.6 ML AMPUL NASAL SCH (09:10)
[2021-05-29 12:12] VITALS: BP 116/69
[2021-05-29 12:42] LABS: GLUCOMETER DEV NAME(LOC) 5S.1; GLUCOSE,POINT OF CARE 78 MG/DL (70-110)
[2021-05-29 15:51] VITALS: BP 98/56
[2021-05-29 20:25] VITALS: BP 111/64
[2021-05-30 07:16] LABS: GLUCOMETER DEV NAME(LOC) 5S.1; GLUCOSE,POINT OF CARE 104 MG/DL (70-110)
== END 2021-05-29 20:50 | DRG 720 ==
LOC: EMS 21:02 → 5S 05-15 07:55
PROVIDERS: ADMIT Internal Medicine; ATTEND Internal Medicine
PROC: 0W9B3ZZ Drainage of Left Pleural Cavity, Percutaneous Approach (ICD-10-PCS; principal; 2021-05-15)
DX: A41.9 Sepsis, unspecified organism (principal); J86.9 Pyothorax without fistula; G92.8 Other toxic encephalopathy; E43 Unspecified severe protein-calorie malnutrition; D68.9 Coagulation defect, unspecified; J18.9 Pneumonia, unspecified organism; J90 Pleural effusion, not elsewhere classified; I82.621 Acute embolism and thrombosis of deep veins of right upper extremity; E11.9 Type 2 diabetes mellitus without complications; D64.9 Anemia, unspecified; F10.20 Alcohol dependence, uncomplicated; F15.90 Other stimulant use, unspecified, uncomplicated; F17.210 Nicotine dependence, cigarettes, uncomplicated; F20.9 Schizophrenia, unspecified; Y95 Nosocomial condition; N40.1 Benign prostatic hyperplasia with lower urinary tract symptoms; R33.8 Other retention of urine; Z20.822 Contact with and (suspected) exposure to COVID-19; F99 Mental disorder, not otherwise specified; Z86.718 Personal history of other venous thrombosis and embolism; Z87.440 Personal history of urinary (tract) infections; Z68.23 Body mass index [BMI] 23.0-23.9, adult
CPT/HCPCS: 36245; 51702; 71045; 71250; 75989; 76000; 76604; 80048; 80053; 80202; 81003; 82140; 82465; 82550; 82945; 82962; 83605; 83615; 83735; 83880; 83986; 84145; 84155; 84157; 84439; 84443; 84484; 85025; 85610; 87015; 87040; 87070; 87077; 87101; 87186; 87205; 87206; 87804; 89051; 93005; 93970; 97110; 97162; 97166; 97535; 99242; 99291; G0480; J0456; J0696; J1644; J1885; J2250; J2270; J2310; J2543; J3010; J3370; J3490; J7030; J7040; J7050; J7060; 36415-L1; 36415-TC; J7613

== ENCOUNTER 2021-12-24 08:43 | Inpatient (IN) | payer OTHER ==
[~2021-12-24] VITALS: Ht 167.6 cm; Wt 64.7 kg
[~2021-12-24 08:43] MED LIST changes: +APIX5TAB PO; -NALT50TA10 PO; -QUET100T PO; +QUET200T PO; -ROPI1TAB13 PO
[2021-12-24] MEDS ORDERED: LUPR3.75 IM (09:34)
[2021-12-24] MEDS ORDERED: BICA50TA47 PO (09:34)
[2021-12-24 09:37] LABS: BASOPHILS % (AUTO) 0.8 % (0.0-2.0); EOSINOPHILS % (AUTO) 3.8 % (1.0-6.0); HEMATOCRIT 37.4 % (41-53); HEMOGLOBIN 12.7 g/dL (13.5-17.5); LYMPHOCYTES # (AUTO) 1.5 K/uL (1.0-4.8); LYMPHOCYTES % (AUTO) 47.4 % (22.0-44.0); MEAN CORPUSCULAR HEMOGLOBIN 32.9 pg (26.0-34.0); MEAN CORPUSCULAR HGB CONC 33.8 G/dL (31.0-37.0); MEAN CORPUSCULAR VOLUME 97 fL (80-100); MONOCYTES # (AUTO) 0.5 K/uL (0.1-1.0); MONOCYTES % (AUTO) 14.4 % (2.0-9.0); NEUTROPHILS # (AUTO) 1.1 K/uL (1.8-7.7); NEUTROPHILS % (AUTO) 33.6 % (40.0-70.0); PLATELET COUNT (AUTO) 246 K/uL (150-450); RED BLOOD CELL COUNT(AUTO) 3.85 MIL/uL (4.50-5.90)
[2021-12-24 09:46] LABS: ANION GAP 3 mmol/L (8-16); CALCIUM, TOTAL 9.5 mg/dL (8.8-10.5); CARBON DIOXIDE 32 mmol/L (22-29); CHLORIDE 105 mmol/L (98-107); CREATININE 0.92 mg/dL (0.60-1.30); GLOMERULAR FILTR. RATE CALC > 60 mL/min (>60); GLUCOSE,RANDOM 106 mg/dL (70-110); POTASSIUM 4.6 mmol/L (3.5-5.1); SODIUM SERUM 140 mmol/L (136-145); UREA NITROGEN, BLOOD 19 mg/dL (7-18)
[2021-12-24] MEDS ORDERED: HYDROCODONE/ACETAMINOPHEN 5-325 MG TABLET PO ONE (10:30)
[2021-12-24] MEDS ORDERED: IOHEXOL 350 MG/ML 75 ML VIAL ONE ×2 (10:39→10:43)
[2021-12-24] MEDS ORDERED: SODIUM CHLORIDE 0.9% 100 ML ONE (10:39)
[2021-12-24 12:48] LABS: APPEARANCE,URINE CLEAR (CLEAR); BILIRUBIN,URINE NEGATIVE (NEGATIVE); GLUCOSE, URINE (UA) NEGATIVE (NEGATIVE); KETONES,URINE NEGATIVE (NEGATIVE); LEUKOCYTE ESTERASE ,URINE SMALL (NEGATIVE); NITRATE,URINE POSITIVE (NEGATIVE); OCCULT BLOOD,URINE NEGATIVE (NEGATIVE); PH,URINE 6.5 (5.0-8.0); PROTEIN,URINE TRACE mg/dL (NEGATIVE); UROBILINOGEN,URINE <=1.0 mg/dL (<=1.0)
[2021-12-24 12:58] LABS: BACTERIA,URINE Moderate /HPF (None Seen); RBC,URINE None Seen /HPF (0-2); SQUAMOUS EPITHELIAL CELL,UR Few /LPF (None Seen)
[2021-12-24 13:03] LABS: PROTHROMBIN TIME 10.3 SEC (9.4-11.6)
[2021-12-24] MEDS ORDERED: HEPARIN SODIUM,PORCINE 5,000 UNITS/ML VIAL IVP PRN ×2 (13:30)
[2021-12-24] MEDS ORDERED: HEPARIN SODIUM 25000 UNITS/D5W 250 ML IV PRN (13:30)
[2021-12-24] MEDS ORDERED: HEPARIN SODIUM,PORCINE 5,000 UNITS/ML VIAL IVP ONE ×2 (13:30)
[2021-12-24 14:50] LABS: INR 1.1 (0.9-1.1); PROTHROMBIN TIME 11.3 SEC (9.4-11.6)
[2021-12-24] MEDS ORDERED: CefTRIAXone 1 GM/DEXTROSE 50 ML IV ONE (15:15)
[2021-12-24 16:30] VITALS: BP 128/74
[2021-12-24 16:57] LABS: COVID AG,FIA SOURCE NASAL SWAB
[2021-12-24 20:36] VITALS: BP 115/67
[2021-12-25] VITALS (7 sets, daily range): BP systolic 109–132; BP diastolic 58–90
[2021-12-25] MEDS ORDERED: HEPARIN SODIUM 25000 UNITS/D5W 250 ML IV SCH (07:15)
[2021-12-25 07:19] LABS: BASOPHILS % (AUTO) 0.9 % (0.0-2.0); HEMATOCRIT 38.2 % (41-53); LYMPHOCYTES # (AUTO) 1.7 K/uL (1.0-4.8); LYMPHOCYTES % (AUTO) 42.9 % (22.0-44.0); MEAN CORPUSCULAR HEMOGLOBIN 32.8 pg (26.0-34.0); MEAN CORPUSCULAR HGB CONC 34.2 G/dL (31.0-37.0); MEAN CORPUSCULAR VOLUME 96 fL (80-100); MONOCYTES # (AUTO) 0.5 K/uL (0.1-1.0); MONOCYTES % (AUTO) 11.5 % (2.0-9.0); NEUTROPHILS # (AUTO) 1.6 K/uL (1.8-7.7); NEUTROPHILS % (AUTO) 40.7 % (40.0-70.0); PLATELET COUNT (AUTO) 239 K/uL (150-450); RED BLOOD CELL COUNT(AUTO) 3.97 MIL/uL (4.50-5.90); RED CELL DISTRIBUTION WIDTH 15.8 % (11.5-14.5)
[2021-12-25] MEDS: CefTRIAXone 1 GM/DEXTROSE 50 ML IV SCH (08:00)
[2021-12-25] MEDS ORDERED: LEUPROLIDE ACETATE 3.75 MG IM SCH (09:00)
[2021-12-25] MEDS: BICALUTAMIDE 50 MG TABLET PO SCH (09:00)
[2021-12-25] MEDS: APIXABAN 5 MG TABLET PO SCH ×2 (15:11→20:22)
[2021-12-25] MEDS ORDERED: SODIUM CHLORIDE 0.9% 250 ML IV ONE (15:25)
[2021-12-25] MEDS ORDERED: ACETAMINOPHEN 325 MG TABLET PO PRN (20:15)
[2021-12-25] MEDS: QUEtiapine FUMARATE 200 MG TABLET PO SCH (20:22)
[2021-12-26 04:21] VITALS: BP 113/54
[2021-12-26 07:51] VITALS: BP 98/59
[2021-12-26] MEDS: APIXABAN 5 MG TABLET PO SCH ×2 (09:43→20:37)
[2021-12-26] MEDS: BICALUTAMIDE 50 MG TABLET PO SCH (09:43)
[2021-12-26] MEDS: CefTRIAXone 1 GM/DEXTROSE 50 ML IV SCH (10:30)
[2021-12-26 11:35] VITALS: BP 108/58
[2021-12-26] MEDS ORDERED: QUET100T34 PO (13:54)
[2021-12-26] MEDS ORDERED: LEUP45SY IM (13:54)
[2021-12-26 15:19] VITALS: BP 118/70
[2021-12-26 19:27] VITALS: BP 146/69
[2021-12-26] MEDS: QUEtiapine FUMARATE 200 MG TABLET PO SCH (20:38)
[2021-12-26 23:55] VITALS: BP 108/60
[2021-12-27 04:43] VITALS: BP 105/61
[2021-12-27 08:18] VITALS: BP 131/68
[2021-12-27] MEDS: CefTRIAXone 1 GM/DEXTROSE 50 ML IV SCH (08:18)
[2021-12-27] MEDS: APIXABAN 5 MG TABLET PO SCH (08:18)
[2021-12-27] MEDS: BICALUTAMIDE 50 MG TABLET PO SCH (08:18)
[2021-12-27] MEDS ORDERED: CEPH-558 PO (09:39)
[2021-12-27] MEDS ORDERED: APIX5TAB PO (09:39)
== END 2021-12-27 10:45 | disposition home or self-care (01) | DRG 463 ==
LOC: EMS 08:43 → 5S 14:58
PROVIDERS: ADMIT Hospitalist; ATTEND Hospitalist
DX: N39.0 Urinary tract infection, site not specified (principal); I26.99 Other pulmonary embolism without acute cor pulmonale; D64.9 Anemia, unspecified; F10.20 Alcohol dependence, uncomplicated; E11.9 Type 2 diabetes mellitus without complications; F17.210 Nicotine dependence, cigarettes, uncomplicated; F20.9 Schizophrenia, unspecified; F32.A Depression, unspecified; Z85.46 Personal history of malignant neoplasm of prostate; Z79.01 Long term (current) use of anticoagulants; Z20.822 Contact with and (suspected) exposure to COVID-19
CPT/HCPCS: 71046; 71275; 74177; 80048; 81001; 84484; 85025; 85379; 85610; 85730; 87040; 87086; 93005; 99285; J0696; J1644; J1950; J7050; Q9967; 36415-L1; 36415-TC

== ENCOUNTER 2022-04-11 15:09 | Emergency (ER) | payer OTHER ==
[~2022-04-11] VITALS: Ht 167.6 cm; Wt 61.2 kg
[~2022-04-11 15:09] MED LIST changes: +BICA50TA47 PO; +CEPH-558 PO; +LEUP45SY IM; +QUET100T34 PO
[2022-04-11 15:14] VITALS: BP 147/88
[2022-04-11] MEDS: ACETAMINOPHEN 325 MG TABLET PO ONE (16:40)
== END 2022-04-11 18:21 | disposition home or self-care (01) ==
LOC: EMS 15:14
DX: S90.31XA Contusion of right foot, initial encounter (principal); F10.20 Alcohol dependence, uncomplicated; F32.A Depression, unspecified; E11.9 Type 2 diabetes mellitus without complications; F20.9 Schizophrenia, unspecified; C61 Malignant neoplasm of prostate; F17.210 Nicotine dependence, cigarettes, uncomplicated; F15.90 Other stimulant use, unspecified, uncomplicated; Z87.19 Personal history of other diseases of the digestive system; Z87.448 Personal history of other diseases of urinary system; W22.8XXA Striking against or struck by other objects, initial encounter; Y93.89 Activity, other specified; Y92.89 Other specified places as the place of occurrence of the external cause; Y99.8 Other external cause status
CPT/HCPCS: 99283

== ENCOUNTER 2023-08-01 10:28 | Emergency (ER) | payer OTHER ==
[~2023-08-01] VITALS: Ht 167.6 cm; Wt 61.4 kg
[2023-08-01 10:32] VITALS: BP 129/70; PULSE 61; RESP 16; TEMP 97.7
[2023-08-01] MEDS ORDERED: ATOR10TA69 PO (12:05)
[2023-08-01] MEDS ORDERED: METHOCARBAMOL 500 MG TABLET PO ONE (12:15)
[2023-08-01] MEDS ORDERED: KETOROLAC TROMETHAMINE 60 MG/2 ML VIAL IM ONE (12:15)
[2023-08-01] MEDS ORDERED: METH-659 PO (12:22)
[2023-08-01] MEDS ORDERED: IBUP-1492 PO (12:22)
== END 2023-08-01 12:47 | disposition home or self-care (01) ==
LOC: EMS 10:28
DX: M54.6 Pain in thoracic spine (principal); F10.20 Alcohol dependence, uncomplicated; F32.A Depression, unspecified; F20.9 Schizophrenia, unspecified; F17.210 Nicotine dependence, cigarettes, uncomplicated; F15.90 Other stimulant use, unspecified, uncomplicated
CPT/HCPCS: 99283; 96372; J1885

== ENCOUNTER 2023-11-02 10:01 | Emergency (ER) | payer OTHER ==
[~2023-11-02] VITALS: Ht 167.6 cm; Wt 65.9 kg
[~2023-11-02 10:01] MED LIST changes: -APIX5TAB PO; +ATOR10TA69 PO; -CEPH-558 PO; +IBUP-1492 PO; +METH-659 PO
[2023-11-02 10:02] VITALS: TEMP 98.6
[2023-11-02 10:48] LABS: ANION GAP 7 mmol/L (8-16); CALCIUM, TOTAL 9.6 mg/dL (8.8-10.5); CARBON DIOXIDE 32 mmol/L (22-29); CHLORIDE 104 mmol/L (98-107); CREATININE 0.88 mg/dL (0.60-1.30); GLOMERULAR FILTR. RATE CALC > 60 mL/min (>60); GLUCOSE,RANDOM 123 mg/dL (70-110); POTASSIUM 4.5 mmol/L (3.5-5.1); SODIUM SERUM 143 mmol/L (136-145); UREA NITROGEN, BLOOD 14 mg/dL (7-18)
[2023-11-02 10:54] LABS: ALANINE AMINOTRANSFERASE 28 U/L (12-78); ALKALINE PHOSPHATASE 84 U/L (46-116); ASPARTATE AMINOTRANSFERASE 23 U/L (15-37); BILIRUBIN,TOTAL 0.3 mg/dL (0.1-1.0); TOTAL PROTEIN, SERUM 7.3 g/dL (6.4-8.2)
[2023-11-02 10:59] LABS: BASOPHILS % (AUTO) 1.1 % (0.0-2.0); EOSINOPHILS % (AUTO) 2.2 % (1.0-6.0); HEMATOCRIT 37.2 % (41-53); HEMOGLOBIN 12.5 g/dL (13.5-17.5); LYMPHOCYTES # (AUTO) 1.1 K/uL (1.0-4.8); LYMPHOCYTES % (AUTO) 31.2 % (22.0-44.0); MEAN CORPUSCULAR HEMOGLOBIN 33.5 pg (26.0-34.0); MEAN CORPUSCULAR HGB CONC 33.5 G/dL (31.0-37.0); MEAN CORPUSCULAR VOLUME 100 fL (80-100); MONOCYTES # (AUTO) 0.6 K/uL (0.1-1.0); NEUTROPHILS # (AUTO) 1.7 K/uL (1.8-7.7); NEUTROPHILS % (AUTO) 49.5 % (40.0-70.0); PLATELET COUNT (AUTO) 207 K/uL (150-450); RED BLOOD CELL COUNT(AUTO) 3.72 MIL/uL (4.50-5.90); RED CELL DISTRIBUTION WIDTH 15.2 % (11.5-14.5); WHITE BLOOD COUNT (AUTO) 3.5 K/uL (4.5-11.0)
[2023-11-02 11:08] LABS: APPEARANCE,URINE CLEAR (CLEAR); BILIRUBIN,URINE NEGATIVE (NEGATIVE); COLOR,URINE YELLOW (YELLOW); GLUCOSE, URINE (UA) NEGATIVE (NEGATIVE); KETONES,URINE NEGATIVE (NEGATIVE); LEUKOCYTE ESTERASE ,URINE NEGATIVE (NEGATIVE); NITRATE,URINE NEGATIVE (NEGATIVE); OCCULT BLOOD,URINE NEGATIVE (NEGATIVE); PH,URINE 5.5 (5.0-8.0); PROTEIN,URINE NEGATIVE (NEGATIVE); UROBILINOGEN,URINE <=1.0 mg/dL (<=1.0)
[2023-11-02] MEDS: KETOROLAC TROMETHAMINE 30 MG/ML VIAL IM ONE (11:41)
[2023-11-02] MEDS: LIDOCAINE 5% TRANSDERMAL PATCH TD ONE (11:41)
[2023-11-02 12:05] VITALS: BP 145/92; PULSE 62; RESP 16
[2023-11-02] MEDS ORDERED: LIDO700A15 TP (12:15)
== END 2023-11-02 12:29 | disposition home or self-care (01) ==
LOC: EMS 10:01
DX: S39.012A Strain of muscle, fascia and tendon of lower back, initial encounter (principal); F20.9 Schizophrenia, unspecified; F32.A Depression, unspecified; F17.210 Nicotine dependence, cigarettes, uncomplicated; F15.90 Other stimulant use, unspecified, uncomplicated; X58.XXXA Exposure to other specified factors, initial encounter; Y93.89 Activity, other specified; Y92.89 Other specified places as the place of occurrence of the external cause; Y99.8 Other external cause status
CPT/HCPCS: 99283; 80053; 81003; 85025; 36415; 96372; J1885

== ENCOUNTER 2023-11-17 19:53 | Emergency (ER) | payer OTHER ==
[~2023-11-17] VITALS: Ht 167.6 cm; Wt 59.5 kg
[~2023-11-17 19:53] MED LIST changes: +LIDO700A15 TP
[2023-11-18] MEDS ORDERED: METH-659 PO (01:09)
[2023-11-18] MEDS ORDERED: IBUP-1492 PO (01:09)
[2023-11-18] MEDS: METHOCARBAMOL 500 MG TABLET PO ONE (01:13)
[2023-11-18] MEDS: KETOROLAC TROMETHAMINE 60 MG/2 ML VIAL IM ONE (01:13)
[2023-11-18 01:57] VITALS: BP 135/81; PULSE 74; RESP 18; TEMP 98.3
== END 2023-11-18 02:37 | disposition home or self-care (01) ==
LOC: EMS 19:54
DX: S39.012A Strain of muscle, fascia and tendon of lower back, initial encounter (principal); F10.20 Alcohol dependence, uncomplicated; F32.A Depression, unspecified; F20.9 Schizophrenia, unspecified; F17.210 Nicotine dependence, cigarettes, uncomplicated; F15.90 Other stimulant use, unspecified, uncomplicated; Y90.9 Presence of alcohol in blood, level not specified; X58.XXXA Exposure to other specified factors, initial encounter; Y93.89 Activity, other specified; Y92.89 Other specified places as the place of occurrence of the external cause; Y99.8 Other external cause status
CPT/HCPCS: 99283; 72110; 96372; J1885

== ENCOUNTER 2023-12-08 18:51 | Emergency (ER) | payer OTHER ==
[~2023-12-08] VITALS: Ht 167.6 cm; Wt 68.2 kg
[2023-12-08 18:55] VITALS: TEMP 98.3
[2023-12-08 20:45] VITALS: BP 117/69; PULSE 66; RESP 16
[2023-12-08] MEDS: PERTUSS(ACELL),DIPH,TET/PF 0.5 ML SYRINGE [ADULT] IM. ONE (21:47)
== END 2023-12-08 22:04 | disposition home or self-care (01) ==
LOC: EMS 18:53
DX: S91.052A Open bite, left ankle, initial encounter (principal); F32.A Depression, unspecified; F20.9 Schizophrenia, unspecified; N15.9 Renal tubulo-interstitial disease, unspecified; F17.210 Nicotine dependence, cigarettes, uncomplicated; F15.90 Other stimulant use, unspecified, uncomplicated; W53.01XA Bitten by mouse, initial encounter; Y93.89 Activity, other specified; Y92.89 Other specified places as the place of occurrence of the external cause; Y99.8 Other external cause status
CPT/HCPCS: 90471; 90715; 99283

== ENCOUNTER 2025-02-06 05:13 | Emergency (ER) | payer OTHER ==
[~2025-02-06] VITALS: Ht 167.6 cm; Wt 59.1 kg
[~2025-02-06 05:13] MED LIST changes: +LIDO-57 TP; -LIDO700A15 TP
[2025-02-06 05:22] VITALS: TEMP 98.2
[2025-02-06 06:19] LABS: PLATELET COUNT (AUTO) 216 K/uL (150-450); RED BLOOD CELL COUNT(AUTO) 3.79 MIL/uL (4.50-5.90); RED CELL DISTRIBUTION WIDTH 13.8 % (11.5-14.5); WHITE BLOOD COUNT (AUTO) 7.3 K/uL (4.5-11.0)
[2025-02-06 06:23] LABS: RBC MORPHOLOGY COMMENT ABNORMAL RBC MORPH
[2025-02-06 06:29] LABS: CALCIUM, TOTAL 9.2 mg/dL (8.8-10.5); CREATININE 0.90 mg/dL (0.60-1.30); GLOMERULAR FILTR. RATE CALC > 60 mL/min (>60); GLUCOSE,RANDOM 70 mg/dL (70-110); SODIUM SERUM 141 mmol/L (136-145); UREA NITROGEN, BLOOD 13 mg/dL (7-18)
[2025-02-06 06:33] LABS: ASPARTATE AMINOTRANSFERASE 33.0 U/L (15-37); TOTAL PROTEIN, SERUM 8.1 g/dL (6.4-8.2)
[2025-02-06 06:36] LABS: ALCOHOL, BLOOD (SERUM) 202.0 mg/dL (0-10)
[2025-02-06 08:44] LABS: APPEARANCE,URINE CLEAR (CLEAR); GLUCOSE, URINE (UA) NEGATIVE (NEGATIVE); LEUKOCYTE ESTERASE ,URINE NEGATIVE (NEGATIVE); NITRATE,URINE NEGATIVE (NEGATIVE); OCCULT BLOOD,URINE NEGATIVE (NEGATIVE); PH,URINE DRUG SCREEN 5.0 (5.0-8.0); SPECIFIC GRAVITIY, URINE 1.008 (1.003-1.030)
[2025-02-06 08:52] LABS: ALCOHOL, URINE DRUG SCREEN POSITIVE (NEGATIVE); AMPHET/METH SCREEN,URINE NEGATIVE (NEGATIVE); BARBITURATE SCREEN, URINE NEGATIVE (NEGATIVE); CANNABINOID SCREEN,URINE NEGATIVE (NEGATIVE); COCAINE SCREEN,URINE NEGATIVE (NEGATIVE); METHADONE SCREEN, URINE NEGATIVE (NEGATIVE)
[2025-02-06] MEDS: SODIUM CHLORIDE 0.9% 1,000 ML IV ONE (09:33)
[2025-02-06 10:45] VITALS: BP 127/78; PULSE 69; RESP 14; O2SAT 98
== END 2025-02-06 12:15 | disposition home or self-care (01) ==
LOC: EMS 05:18
DX: F10.129 Alcohol abuse with intoxication, unspecified (principal); J44.9 Chronic obstructive pulmonary disease, unspecified; F32.A Depression, unspecified; F20.9 Schizophrenia, unspecified; F17.210 Nicotine dependence, cigarettes, uncomplicated; F15.90 Other stimulant use, unspecified, uncomplicated; Z79.899 Other long term (current) drug therapy; Y90.7 Blood alcohol level of 200-239 mg/100 ml
CPT/HCPCS: 99283; 96360; 80048; 80076; 81003; 83690; 85025; 36415; 80307; G0480; J7030